=== PATIENT | female | born 1975 | race Caucasian/White ===

== ENCOUNTER → 2017-02-13 | Outpatient (CLI) | payer BC, OTHER ==
--- NOTE | 2017-02-13 18:51 | Diagnostic Imaging Report ---
EXAM: Ultrasound of the neck. INDICATION: Fullness in the region of the right submandibular area. FINDINGS: The area of fullness is seen adjacent to the left submandibular gland with corresponding 0.9 x 0.6 x 0.6 cm lymph node with thin cortex and preserved fatty hilum, likely physiologic. No suspicious lesion or fluid collection identified. IMPRESSION: Minimally prominent left submandibular lymph node in the area of fullness is seen. Dictated by: Dictated on workstation # [id number]
== END ==
LOC: RAD 14:36
PROVIDERS: ATTEND Nurse Practitioner Family
DX: R59.0 Localized enlarged lymph nodes (principal)
CPT/HCPCS: 76536

== ENCOUNTER 2017-03-13 14:54 | Outpatient (RCR) | payer BC, OTHER ==
[2017-02-27 13:42] LABS: BASOPHILS % (AUTO) 0 % (0-10); EOSINOPHILS # (AUTO) 0.1 10^3/uL (0.0-0.3); EOSINOPHILS % (AUTO) 1 % (0-10); LYMPHOCYTES # (AUTO) 1.9 X 10^3 (1.0-4.0); LYMPHOCYTES % (AUTO) 22 % (12-44); MEAN CORPUSCULAR HEMOGLOBIN 30 PG (25-34); MEAN CORPUSCULAR HGB CONC 33 G/DL (32-36); MEAN CORPUSCULAR VOLUME 90 FL (80-99); MONOCYTES # (AUTO) 0.5 X 10^3 (0.0-1.0); MONOCYTES % (AUTO) 6 % (0-12); NEUTROPHILS # (AUTO) 5.9 X 10^3 (1.8-7.8); NEUTROPHILS % (AUTO) 70 % (42-75); PLATELET COUNT 604 10^3/uL (130-400); RED BLOOD COUNT 4.04 10^6/uL (4.35-5.85); RED CELL DISTRIBUTION WIDTH 13.2 % (10.0-14.5); WHITE BLOOD COUNT 8.5 10^3/uL (4.3-11.0)
[2017-02-27 14:06] LABS: ALANINE AMINOTRANSFERASE 16 U/L (0-55); ALBUMIN 3.9 GM/DL (3.2-4.5); ANION GAP 4 MMOL/L (5-14); ASPARTATE AMINO TRANSFERASE 15 U/L (5-34); BILIRUBIN,TOTAL 0.4 MG/DL (0.1-1.0); BLOOD UREA NITROGEN 8 MG/DL (7-18); BUN/CREATININE RATIO 11; CALCIUM 8.8 MG/DL (8.5-10.1); CARBON DIOXIDE 29 MMOL/L (21-32); CHLORIDE 107 MMOL/L (98-107); CREATININE SERUM 0.72 MG/DL (0.60-1.30); GFR ESTIMATED > 60; GLUCOSE 89 MG/DL (70-105); POTASSIUM 4.2 MMOL/L (3.6-5.0); SODIUM 140 MMOL/L (135-145); TOTAL PROTEIN 6.2 GM/DL (6.4-8.2)
[2017-02-27 16:48] LABS: %SAT TOTAL IRON BINDING CAPIC 53 % (15-50); TIBC 339 ug/dL (280-380)
[2017-02-28 07:17] LABS: UIBC 159 ug/dL
[2017-03-03 15:13] LABS: JAK2 MUTATION Not Detected
[2017-03-13 15:25] LABS: BASOPHILS % (AUTO) 0 % (0-10); EOSINOPHILS # (AUTO) 0.2 10^3/uL (0.0-0.3); EOSINOPHILS % (AUTO) 2 % (0-10); LYMPHOCYTES # (AUTO) 2.3 X 10^3 (1.0-4.0); LYMPHOCYTES % (AUTO) 24 % (12-44); MEAN CORPUSCULAR HEMOGLOBIN 29 PG (25-34); MEAN CORPUSCULAR HGB CONC 32 G/DL (32-36); MEAN CORPUSCULAR VOLUME 91 FL (80-99); MEAN PLATELET VOLUME 8.3 FL (7.4-10.4); MONOCYTES # (AUTO) 0.7 X 10^3 (0.0-1.0); MONOCYTES % (AUTO) 7 % (0-12); NEUTROPHILS # (AUTO) 6.3 X 10^3 (1.8-7.8); NEUTROPHILS % (AUTO) 66 % (42-75); PLATELET COUNT 642 10^3/uL (130-400); RED CELL DISTRIBUTION WIDTH 13.6 % (10.0-14.5); WHITE BLOOD COUNT 9.5 10^3/uL (4.3-11.0)
== END 2017-05-04 11:23 | disposition home or self-care (01) ==
LOC: ONC 14:54
PROVIDERS: ATTEND Internal Medicine Hematology & Oncology
DX: D47.3 Essential (hemorrhagic) thrombocythemia (principal); D50.0 Iron deficiency anemia secondary to blood loss (chronic); N92.0 Excessive and frequent menstruation with regular cycle
CPT/HCPCS: 36415; 80053; 81270; 82728; 83540; 85025; 99213; 99214

== ENCOUNTER → 2017-08-14 | Outpatient (CLI) | payer BC ==
--- NOTE | 2017-08-14 20:48 | Diagnostic Imaging Report ---
PROCEDURE: US PELVIC (NON OB) TECHNIQUE: Multiple real-time grayscale images were obtained over the pelvis in various projections transabdominally. IMPRESSION: Vaginal bleeding. FINDINGS: Transabdominally the uterus measures 8.8 x 6.5 cm and demonstrates no focal or myometrial abnormality. The endometrium measures up to 7.5 mm in thickness. There is no fluid within the endometrial canal. Transabdominal appearance of both ovaries is normal. There is no evidence of torsion. Both ovaries demonstrate Doppler flow. Trace degree of free fluid is evident within the cul-de-sac. IMPRESSION: 1. Trace degree of free fluid demonstrated within the cul-de-sac. Endometrial thickness measured 7.5 mm. There is no myometrial abnormality. The ovaries appeared normal. Dictated by: Dictated on workstation # [id number]
== END ==
LOC: RAD 15:16
PROVIDERS: ATTEND Obstetrics & Gynecology
DX: N93.9 Abnormal uterine and vaginal bleeding, unspecified (principal); N94.6 Dysmenorrhea, unspecified
CPT/HCPCS: 76856

== ENCOUNTER → 2017-12-25 | Outpatient (CLI) | payer BC ==
--- NOTE | 2017-12-25 13:02 | Diagnostic Imaging Report ---
INDICATION: Abnormal screening study demonstrating circumscribed lesions in the upper and upper outer left breast, presumably cysts. This study is performed for further evaluation. COMPARISON: Screening mammogram from 11/29/2017. FINDINGS: Sonographic interrogation of the 12 to 3 o'clock location was performed. There is a cluster of cysts at the 2 o'clock location 1 cm from the nipple measuring 1.4 x 1.2 x 1.5 cm in aggregate. There is a cyst at the 2 o'clock location 4 cm from the nipple measuring 1.5 x 0.8 x 1.8 cm. This likely accounts for the mammographic densities. No solid lesions are seen. IMPRESSION: Multiple left breast cysts, likely accounting for the mammographic densities. The patient may return to routine annual screening mammography. ACR BI-RADS Category 1: Negative. Dictated by: Dictated on workstation # [id number]
== END ==
LOC: RAD 11:33
PROVIDERS: ATTEND Obstetrics & Gynecology
DX: N60.02 Solitary cyst of left breast (principal)
CPT/HCPCS: 76642

== ENCOUNTER → 2018-08-23 | Outpatient (CLI) | payer BC ==
--- NOTE | 2018-08-23 08:21 | Diagnostic Imaging Report ---
PROCEDURE: US Gallbladder. TECHNIQUE: Multiple real-time grayscale images were obtained over the right upper quadrant in various projections. INDICATION: Right upper quadrant pain. FINDINGS: Liver is upper limits of normal in size at 17.5 cm. No discrete liver mass is identified. The portal vein is patent and shows normal direction of flow. Gallbladder is without stones or sludge. No wall thickening or biliary ductal dilatation is seen. The visualized pancreatic head is unremarkable. The tail is obscured by bowel gas. Kidney is unremarkable. There is no ascites. IMPRESSION: Unremarkable gallbladder ultrasound. Dictated by: Dictated on workstation # [id number]
== END ==
LOC: RAD 07:10
PROVIDERS: ATTEND Physician Assistant
DX: R10.11 Right upper quadrant pain (principal); R63.0 Anorexia
CPT/HCPCS: 76705

== ENCOUNTER 2018-09-10 10:56 | Outpatient (RCR) | payer BC ==
[2018-09-10 11:09] LABS: BASOPHILS # (AUTO) 0.1 10^3/uL (0.0-0.1); BASOPHILS % (AUTO) 1 % (0-10); EOSINOPHILS # (AUTO) 0.2 10^3/uL (0.0-0.3); EOSINOPHILS % (AUTO) 4 % (0-10); HEMATOCRIT 42 % (35-52); HEMOGLOBIN 13.7 G/DL (11.5-16.0); LYMPHOCYTES # (AUTO) 1.3 X 10^3 (1.0-4.0); LYMPHOCYTES % (AUTO) 21 % (12-44); MEAN CORPUSCULAR HEMOGLOBIN 30 PG (25-34); MEAN CORPUSCULAR HGB CONC 33 G/DL (32-36); MEAN CORPUSCULAR VOLUME 94 FL (80-99); MEAN PLATELET VOLUME 8.8 FL (7.4-10.4); MONOCYTES # (AUTO) 0.5 X 10^3 (0.0-1.0); MONOCYTES % (AUTO) 8 % (0-12); NEUTROPHILS # (AUTO) 4.3 X 10^3 (1.8-7.8); NEUTROPHILS % (AUTO) 67 % (42-75); PLATELET COUNT 584 10^3/uL (130-400); RED CELL DISTRIBUTION WIDTH 13.3 % (10.0-14.5); WHITE BLOOD COUNT 6.4 10^3/uL (4.3-11.0)
[2018-09-10 11:29] LABS: ALANINE AMINOTRANSFERASE 41 U/L (0-55); ALKALINE PHOSPHATASE 55 U/L (40-136); BILIRUBIN,TOTAL 0.3 MG/DL (0.1-1.0); BUN/CREATININE RATIO 17; CALCIUM 8.9 MG/DL (8.5-10.1); CARBON DIOXIDE 23 MMOL/L (21-32); CHLORIDE 108 MMOL/L (98-107); CREATININE SERUM 0.77 MG/DL (0.60-1.30); GFR ESTIMATED > 60; GLUCOSE 77 MG/DL (70-105); SODIUM 141 MMOL/L (135-145); TOTAL PROTEIN 6.1 GM/DL (6.4-8.2)
[2018-10-09] MEDS ORDERED: ESCI20TA PO (13:01)
[2018-10-09] MEDS ORDERED: PANT40TA2 PO (13:01)
[2018-11-06] MEDS ORDERED: SUCR1TAB36 PO (13:25)
== END 2018-12-09 | disposition home or self-care (01) ==
LOC: ONC 10:56
PROVIDERS: ATTEND Internal Medicine Hematology & Oncology
DX: D47.3 Essential (hemorrhagic) thrombocythemia (principal); D50.0 Iron deficiency anemia secondary to blood loss (chronic); N92.0 Excessive and frequent menstruation with regular cycle
CPT/HCPCS: 36415; 80053; 82728; 85025; 99213

== ENCOUNTER 2018-10-09 05:42 | Outpatient (CLI) | payer BC ==
[~2018-10-09] VITALS: Ht 170.2 cm; Wt 70.8 kg
[2018-10-09] MEDS ORDERED: PANT40TA2 PO (13:01)
[2018-10-09] MEDS ORDERED: ESCI20TA PO (13:01)
== END 2018-10-09 13:06 | disposition home or self-care (01) ==
LOC: PREOP 05:42
PROVIDERS: ATTEND Surgery
DX: Z01.818 Encounter for other preprocedural examination (principal)

== ENCOUNTER 2018-11-06 10:31 | Day surgery (SDC) | payer BC ==
[~2018-11-06] VITALS: Ht 170.2 cm; Wt 70.8 kg
[~2018-11-06 10:31] MED LIST: ESCI20TA PO; PANT40TA2 PO
--- OUTSIDE RECORDS SUMMARY | 2018-11-06 10:34 | XMS REPORT ---
Author Author Migration, Doctor Organization [facility] Address Unknown Phone Unavailable Care Team Providers Care Naval Designer Name Role Phone Migration, Doctor Unavailable Unavailable PROBLEMS Type Condition ICD9-CM Code [id number] Code Onset Dates Condition Status SNOMED Code Problem Abnormal screening mammogram R92.8 Active 402620133 Problem Thrombocytosis D47.3 Active 2800174 ALLERGIES No Information ENCOUNTERS Encounter Location Date Diagnosis [place] [address] [address] May, Upper respiratory tract infection, unspecified type J06.9 and Thrombocytosis D47.3 [place] [address] [place] [id number] [place] [address] Mar, Abnormal screening mammogram R92.8 [place] [address] [place] [id number] [place] [address] Mar, [place] [address] [place] [id number] [place] [address] Feb, Routine gynecological examination Z01.419 ; Encounter for Papanicolaou smear for cervical cancer screening Z12.4 and Screening breast examination Z12.39 [place] [address] [place] [id number] [place] [address] Jan, Bleeding from left ear H92.22 [place] [address] [place] [id number] [place] [address] December, Anemia, unspecified type D64.9 [place] [address] [place] [id number] [place] [address]- [address] 14 Nov, 2014 [place] [address] [place] [id number] [place] [address] Nov, [place] [address] [place] [id number] [place] [address] Sep, [facility] [address] [id number] [place] [address] Sep, [facility] [place] [facility] [address] [id number] [place] [address] Aug, [facility] [address] [id number] [place] [address] Aug, [facility] [address] [id number] [place] [address] Aug, [facility] [address] [id number] [place] [address] Aug, [facility] [address] [id number] [place] [address] Jul, [facility] [address] [facility] [id number] [place] [address] Jul, [facility] [place] [facility] [address] [id number] [place] [address] Jul, [facility] [address] [id number] [place] [address] Jul, [facility] [place] [facility] [address] [facility] [id number] [place] [address] Jul, [facility] [address] [id number] [place] [address] Jul, [facility] [place] [facility] [address] [id number] [place] [address] 29 Oct, 2012 [facility] [place] [facility] [address] [id number] [place] [address] 28 Oct, 2012 [facility] [place] [facility] [address] [id number] [place] [address] 26 Oct, 2012 [facility] [place] [facility] [address] [facility] [id number] [place] [address] 09 Jul, 2010 [facility] [place] [facility] [address] [facility] [id number] [place] [id number] 2010 IMMUNIZATIONS No Known Immunizations SOCIAL HISTORY Never Assessed REASON FOR VISIT EMR-[facility]AN OF CARE VITAL SIGNS MEDICATIONS Medication Instructions Dosage Frequency Start Date End Date Duration Status Vitamin B-12 250 mcg 2 Tablet by Oral route 1 time per day Jul, Active RESULTS No Results PROCEDURES No Known procedures INSTRUCTIONS MEDICATIONS ADMINISTERED No Known Medications MEDICAL (GENERAL) HISTORY Type Description Date Surgical History Tubal ligation 1996
[2018-11-06 10:35] VITALS: BP 107/78
--- OUTSIDE RECORDS SUMMARY | 2018-11-06 10:35 | XMS REPORT | Continuity of Care Document ---
Author Author [facility] Address Unknown Phone Unavailable Allergies Active Description Code Type Severity Reaction Onset Reported/Identified Relationship to Patient Clinical Status Yes No Known Drug Allergies [id number] Drug Allergy Unknown N/A 10/09/2018 Medications There is no data. Problems Date Dx Coded Attending Type Code Diagnosis Diagnosed By 01/11/2010 729.5 PAIN IN LIMB 01/11/2010 MEAGAN ANDRE MD 729.5 PAIN IN LIMB 01/11/2010 MEAGAN ANDRE MD N 729.5 PAIN IN LIMB 01/11/2010 MEAGAN ANDRE MD 729.5 PAIN IN LIMB 07/15/2010 216.4 BENIGN NEOPLASM OF SCALP AND SKIN OF NECK 07/15/2010 MEAGAN ANDRE MD N 216.4 BENIGN NEOPLASM OF SCALP AND SKIN OF NECK 07/15/2010 MEAGAN ANDRE MD N 216.4 BENIGN NEOPLASM OF SCALP AND SKIN OF NECK 07/15/2010 MEAGAN ANDRE MD N 216.4 BENIGN NEOPLASM OF SCALP AND SKIN OF NECK 11/29/2010 238.1 NEOPLASM OF UNCERTAIN BEHAVIOR OF CONNECTIVE AND OTHER SOFT TISSUE 11/29/2010 MEAGAN ANDRE MD N 238.1 NEOPLASM OF UNCERTAIN BEHAVIOR OF CONNECTIVE AND OTHER SOFT TISSUE 11/29/2010 MEAGAN ANDRE MD N 238.1 NEOPLASM OF UNCERTAIN BEHAVIOR OF CONNECTIVE AND OTHER SOFT TISSUE 11/29/2010 MEAGAN ANDRE MD N 238.1 NEOPLASM OF UNCERTAIN BEHAVIOR OF CONNECTIVE AND OTHER SOFT TISSUE 12/09/2010 216.9 BENIGN NEOPLASM OF SKIN SITE UNSPECIFIED 12/09/2010 785.6 ENLARGEMENT OF LYMPH NODES 12/09/2010 V58.32 ENCOUNTER FOR REMOVAL OF SUTURES 12/09/2010 MEAGAN ANDRE MD N 216.9 BENIGN NEOPLASM OF SKIN SITE UNSPECIFIED 12/09/2010 MEAGAN ANDRE MD N 785.6 ENLARGEMENT OF LYMPH NODES 12/09/2010 MEAGAN ANDRE MD N V58.32 ENCOUNTER FOR REMOVAL OF SUTURES 12/09/2010 MEAGAN ANDRE MD N 216.9 BENIGN NEOPLASM OF SKIN SITE UNSPECIFIED 12/09/2010 MEAGAN ANDRE MD N 785.6 ENLARGEMENT OF LYMPH NODES 12/09/2010 MEAGAN ANDRE MD N V58.32 ENCOUNTER FOR REMOVAL OF SUTURES 12/09/2010 MEAGAN ANDRE MD N 216.9 BENIGN NEOPLASM OF SKIN SITE UNSPECIFIED 12/09/2010 MEAGAN ANDRE MD N 785.6 ENLARGEMENT OF LYMPH NODES 12/09/2010 MEAGAN ANDRE MD V58.32 ENCOUNTER FOR REMOVAL OF SUTURES 10/30/2012 564.00 CONSTIPATION 10/30/2012 789.09 ABDOMINAL PAIN OTHER SPECIFIED SITE 10/30/2012 MEAGAN ANDRE MD N 564.00 CONSTIPATION 10/30/2012 MEAGAN ANDRE MD N 789.09 ABDOMINAL PAIN OTHER SPECIFIED SITE 10/30/2012 MEAGAN ANDRE MD N 564.00 CONSTIPATION 10/30/2012 MEAGAN ANDRE MD N 789.09 ABDOMINAL PAIN OTHER SPECIFIED SITE 10/30/2012 MEAGAN ANDRE MD N 564.00 CONSTIPATION 10/30/2012 MEAGAN ANDRE MD N 789.09 ABDOMINAL PAIN OTHER SPECIFIED SITE 07/17/2013 MEAGAN ANDRE MD N V70.0 EXAM - ROUTINE H&P 07/17/2013 MEAGAN ANDRE MD V70.0 EXAM - ROUTINE H&P 07/17/2013 MEAGAN ANDRE MD V70.0 EXAM - ROUTINE H&P 03/14/2016 Ot 621.2 HYPERTROPHY OF UTERUS 03/14/2016 Ot 626.8 MENSTRUAL DISORDER NEC 03/16/2016 KADE BEST Ot Z12.31 ENCNTR SCREEN MAMMOGRAM FOR MALIGNANT NE 03/25/2016 KADE BESTP Ot Z12.31 ENCNTR SCREEN MAMMOGRAM FOR MALIGNANT NE 03/29/2016 SUAREZ DOESME Ot R92.8 OTH ABN AND INCONCLUSIVE FINDINGS ON DX 04/03/2016 SUAREZ DOESME Ot R92.8 OTH ABN AND INCONCLUSIVE FINDINGS ON DX 04/05/2016 Ot 621.2 HYPERTROPHY OF UTERUS 04/05/2016 Ot 626.8 MENSTRUAL DISORDER NEC 04/05/2016 KADE BEST [employer] Ot Z12.31 ENCNTR SCREEN MAMMOGRAM FOR MALIGNANT NE 04/05/2016 SUAREZ DO, ESME K Ot R92.8 OTH ABN AND INCONCLUSIVE FINDINGS ON DX 02/08/2017 KADE BEST [employer] Ot Z12.31 ENCNTR SCREEN MAMMOGRAM FOR MALIGNANT NE 02/08/2017 SUAREZ DO, ESME K Ot R92.8 OTH ABN AND INCONCLUSIVE FINDINGS ON DX 02/14/2017 DEMARCUS WEAVER EDGER TECHNICIAN Ot R59.0 LOCALIZED ENLARGED LYMPH NODES 02/19/2017 DEMARCUS WEAVER EDGER TECHNICIAN Ot R59.0 LOCALIZED ENLARGED LYMPH NODES 02/22/2017 DEMARCUS WEAVER EDGER TECHNICIAN Ot R59.0 LOCALIZED ENLARGED LYMPH NODES 02/27/2017 DEMARCUS WEAVER EDGER TECHNICIAN Ot R59.0 LOCALIZED ENLARGED LYMPH NODES 02/28/2017 ALLIE MARIEE MD Ot D47.3 ESSENTIAL (HEMORRHAGIC) THROMBOCYTHEMIA 02/28/2017 ALLIE MARIEE MD Ot D50.0 IRON DEFICIENCY ANEMIA SECONDARY TO BLOO 02/28/2017 ALLIE MARIEE MD Ot N92.0 EXCESSIVE AND FREQUENT MENSTRUATION WITH 03/01/2017 DEMARCUS WEAVER EDGER TECHNICIAN Ot R59.0 LOCALIZED ENLARGED LYMPH NODES 03/01/2017 DEMARCUS WEAVER EDGER TECHNICIAN Ot R59.0 LOCALIZED ENLARGED LYMPH NODES 03/01/2017 DEMARCUS WEAVER EDGER TECHNICIAN Ot R59.0 LOCALIZED ENLARGED LYMPH NODES 03/29/2017 ALLIE MARIEE MD Ot D47.3 ESSENTIAL (HEMORRHAGIC) THROMBOCYTHEMIA 03/29/2017 ALLIE MARIEE MD Ot D50.0 IRON DEFICIENCY ANEMIA SECONDARY TO BLOO 03/29/2017 ALLIE MARIEE MD Ot N92.0 EXCESSIVE AND FREQUENT MENSTRUATION WITH 04/19/2017 ALLIE MARIEE MD Ot D47.3 ESSENTIAL (HEMORRHAGIC) THROMBOCYTHEMIA 04/19/2017 ALLIE MARIEE MD Ot D50.0 IRON DEFICIENCY ANEMIA SECONDARY TO BLOO 04/19/2017 ALLIE MARIEE MD Ot N92.0 EXCESSIVE AND FREQUENT MENSTRUATION WITH 05/04/2017 ALLIE MARIEE MD Ot D47.3 ESSENTIAL (HEMORRHAGIC) THROMBOCYTHEMIA 05/04/2017 ALLIE MARIEE MD Ot D50.0 IRON DEFICIENCY ANEMIA SECONDARY TO BLOO 05/04/2017 KODI PRINGLE, ALLIE Ot N92.0 EXCESSIVE AND FREQUENT MENSTRUATION WITH 05/09/2017 KADE BESTP Ot Z12.31 ENCNTR SCREEN MAMMOGRAM FOR MALIGNANT NE 05/09/2017 ESME SUAREZ DO Ot R92.8 OTH ABN AND INCONCLUSIVE FINDINGS ON DX 05/09/2017 DEMARCUS WEAVER EDGER TECHNICIAN Ot R59.0 LOCALIZED ENLARGED LYMPH NODES 06/08/2017 DEMARCUS WEAVER EDGER TECHNICIAN Ot R59.0 LOCALIZED ENLARGED LYMPH NODES 08/14/2017 DEMARCUS WEAVER EDGER TECHNICIAN Ot R59.0 LOCALIZED ENLARGED LYMPH NODES 11/29/2017 DEMARCUS WEAVER EDGER TECHNICIAN Ot R59.0 LOCALIZED ENLARGED LYMPH NODES 11/29/2017 FENECH DO, DONNELL S Ot N93.9 ABNORMAL UTERINE AND VAGINAL BLEEDING, U 11/29/2017 FENECH DO, DONNELL S Ot N94.6 DYSMENORRHEA, UNSPECIFIED 11/30/2017 FENECH DO, DONNELL S Ot Z12.31 ENCNTR SCREEN MAMMOGRAM FOR MALIGNANT NE 12/09/2017 FENECH DO, DONNELL S Ot Z12.31 ENCNTR SCREEN MAMMOGRAM FOR MALIGNANT NE 12/13/2017 FENECH DO, DONNELL S Ot Z12.31 ENCNTR SCREEN MAMMOGRAM FOR MALIGNANT NE 12/18/2017 DEMARCUS WEAVER EDGER TECHNICIAN Ot R59.0 LOCALIZED ENLARGED LYMPH NODES 12/18/2017 FENECH DO, DONNELL S Ot N93.9 ABNORMAL UTERINE AND VAGINAL BLEEDING, U 12/18/2017 FENECH DO, DONNELL S Ot N94.6 DYSMENORRHEA, UNSPECIFIED 12/18/2017 FENECH DO, DONNELL S Ot Z12.31 ENCNTR SCREEN MAMMOGRAM FOR MALIGNANT NE 12/26/2017 FENECH DO, DONNELL S Ot N60.02 SOLITARY CYST OF LEFT BREAST 01/11/2018 FENECH DO, DONNELL S Ot N60.02 SOLITARY CYST OF LEFT BREAST 04/04/2018 MADELIN CARTAGENA MD Ot D47.3 ESSENTIAL (HEMORRHAGIC) THROMBOCYTHEMIA 04/04/2018 MADELIN CARTAGENA MD Ot D64.9 ANEMIA, UNSPECIFIED 04/04/2018 MADELIN CARTAGENA MD Ot D72.829 ELEVATED WHITE BLOOD CELL COUNT, UNSPECI 04/18/2018 MADELIN CARTAGENA MD, Ot D47.3 ESSENTIAL (HEMORRHAGIC) THROMBOCYTHEMIA 04/18/2018 MADELIN CARTAGENA MD, Ot D64.9 ANEMIA, UNSPECIFIED 04/18/2018 MADELIN CARTAGENA MD, Ot D72.829 ELEVATED WHITE BLOOD CELL COUNT, UNSPECI 05/08/2018 DEMARCUS WEAVER EDGER TECHNICIAN Ot R59.0 LOCALIZED ENLARGED LYMPH NODES 05/08/2018 FENECH DO, DONNELL S Ot N93.9 ABNORMAL UTERINE AND VAGINAL BLEEDING, U 05/08/2018 FENECH DO, DONNELL S Ot N94.6 DYSMENORRHEA, UNSPECIFIED 05/08/2018 FENECH DO, DONNELL S Ot Z12.31 ENCNTR SCREEN MAMMOGRAM FOR MALIGNANT NE 05/08/2018 FENECH DO, DONNELL S Ot N60.02 SOLITARY CYST OF LEFT BREAST 05/08/2018 MADELIN CARTAGENA MD, Ot D47.3 ESSENTIAL (HEMORRHAGIC) THROMBOCYTHEMIA 05/08/2018 MADELIN CARTAGENA MD, Ot D64.9 ANEMIA, UNSPECIFIED 05/08/2018 MADELIN CARTAGENA MD, Ot D72.829 ELEVATED WHITE BLOOD CELL COUNT, UNSPECI 05/14/2018 DEMARCUS WEAVER EDGER TECHNICIAN Ot R59.0 LOCALIZED ENLARGED LYMPH NODES 05/14/2018 FENECH DO, DONNELL S Ot N93.9 ABNORMAL UTERINE AND VAGINAL BLEEDING, U 05/14/2018 FENECH DO, DONNELL S Ot N94.6 DYSMENORRHEA, UNSPECIFIED 05/14/2018 FENECH DO, DONNELL S Ot Z12.31 ENCNTR SCREEN MAMMOGRAM FOR MALIGNANT NE 05/14/2018 FENECH DO, DONNELL S Ot N60.02 SOLITARY CYST OF LEFT BREAST 05/14/2018 MADELIN CARTAGENA MD, Ot D47.3 ESSENTIAL (HEMORRHAGIC) THROMBOCYTHEMIA 05/14/2018 MADELIN CARTAGENA MD, Ot D64.9 ANEMIA, UNSPECIFIED 05/14/2018 MADELIN CARTAGENA MD, Ot D72.829 ELEVATED WHITE BLOOD CELL COUNT, UNSPECI 07/03/2018 IVAN BURK Ot D47.3 ESSENTIAL (HEMORRHAGIC) THROMBOCYTHEMIA 07/03/2018 IVAN BURK Ot D50.0 IRON DEFICIENCY ANEMIA SECONDARY TO BLOO 07/03/2018 IVAN BURK Ot N92.0 EXCESSIVE AND FREQUENT MENSTRUATION WITH 08/12/2018 IVAN BURK Ot D47.3 ESSENTIAL (HEMORRHAGIC) THROMBOCYTHEMIA 08/12/2018 IVAN BURK Ot D50.0 IRON DEFICIENCY ANEMIA SECONDARY TO BLOO 08/12/2018 IVAN BURK Ot N92.0 EXCESSIVE AND FREQUENT MENSTRUATION WITH 08/13/2018 IVAN BURK Ot D47.3 ESSENTIAL (HEMORRHAGIC) THROMBOCYTHEMIA 08/13/2018 IVAN BURK Ot D50.0 IRON DEFICIENCY ANEMIA SECONDARY TO BLOO 08/13/2018 IVAN BURK Ot N92.0 EXCESSIVE AND FREQUENT MENSTRUATION WITH 08/17/2018 DEMARCUS WEAVER APRN Ot R59.0 LOCALIZED ENLARGED LYMPH NODES 08/17/2018 BETINA DODONNELL S Ot N93.9 ABNORMAL UTERINE AND VAGINAL BLEEDING, U 08/17/2018 DONNELL MOFFETT DO S Ot N94.6 DYSMENORRHEA, UNSPECIFIED 08/17/2018 DONNLEL MOFFETT DO S Ot Z12.31 ENCNTR SCREEN MAMMOGRAM FOR MALIGNANT NE 08/17/2018 DONNELL MOFFETT DO Ot N60.02 SOLITARY CYST OF LEFT BREAST 08/17/2018 OSIEL PRINGLE, MADELIN Spears Ot D47.3 ESSENTIAL (HEMORRHAGIC) THROMBOCYTHEMIA 08/17/2018 OSIEL PRINGLE, MADELIN Spears Ot D64.9 ANEMIA, UNSPECIFIED 08/17/2018 OSIEL PRINGLE, MADELIN Spears Ot D72.829 ELEVATED WHITE BLOOD CELL COUNT, UNSPECI 08/17/2018 IVAN BURK Ot D47.3 ESSENTIAL (HEMORRHAGIC) THROMBOCYTHEMIA 08/17/2018 IVAN BURK Ot D50.0 IRON DEFICIENCY ANEMIA SECONDARY TO BLOO 08/17/2018 IVAN BURK Ot N92.0 EXCESSIVE AND FREQUENT MENSTRUATION WITH 08/24/2018 BAILEE NAVA Ot R10.11 RIGHT UPPER QUADRANT PAIN 08/24/2018 BAILEE NAVA Ot R63.0 ANOREXIA 09/05/2018 BAILEE NAVA Ot R10.11 RIGHT UPPER QUADRANT PAIN 09/05/2018 BAILEE NAVA Ot R63.0 ANOREXIA 09/11/2018 IVAN BURK Ot D47.3 ESSENTIAL (HEMORRHAGIC) THROMBOCYTHEMIA 09/11/2018 IVAN BURK Ot D50.0 IRON DEFICIENCY ANEMIA SECONDARY TO BLOO 09/11/2018 BHARGAVI, BOBAN N Ot N92.0 EXCESSIVE AND FREQUENT MENSTRUATION WITH 10/09/2018 MARY SALAZAR DO Ot Z01.818 ENCOUNTER FOR OTHER PREPROCEDURAL EXAMIN 10/22/2018 IVAN BURK Ot D47.3 ESSENTIAL (HEMORRHAGIC) THROMBOCYTHEMIA 10/22/2018 IVAN BURK Ot D50.0 IRON DEFICIENCY ANEMIA SECONDARY TO BLOO 10/22/2018 IVAN BURK Ot N92.0 EXCESSIVE AND FREQUENT MENSTRUATION WITH Procedures Code Description [place] [address] UA W/ CULTURE IF INDICATED 10/30/2012 27956 CULTURE URINE 11/01/2012 24940 ROUTINE VENIPUNCTURE 07/18/2013 76681 CBC 07/18/2013 [id number] GFR CALC (RESULT ONLY) 07/18/2013 06408 CMP 07/18/2013 71631 LIPID PANEL 07/18/2013 72107 MAGNESIUM 07/18/2013 95934 TSH 07/18/2013 86898 ROUTINE VENIPUNCTURE 08/29/2013 49074 CBC 08/29/2013 Results Test Result Range Pathologist review of blood test by comment - 04/02/18 10:31 Blood leukocytes automated count (number/volume) 7.9 10*3/uL 4.3-11.0 Blood erythrocytes automated count (number/volume) 4.01 10*6/uL 4.35-5.85 Venous blood hemoglobin measurement (mass/volume) 12.1 g/dL 11.5-16.0 Blood hematocrit (volume fraction) 36 % 35-52 Automated erythrocyte mean corpuscular volume 91 [foz_us] 80-99 Automated erythrocyte mean corpuscular hemoglobin (mass per erythrocyte) 30 pg 25-34 Automated erythrocyte mean corpuscular hemoglobin concentration measurement ( mass/volume) 33 g/dL 32-36 Automated erythrocyte distribution width ratio 13.3 % 10.0-14.5 Automated blood platelet count (count/volume) 746 10*3/uL 130-400 Automated blood platelet mean volume measurement 8.4 [foz_us] 7.4-10.4 Automated blood neutrophils/100 leukocytes 65 % 42-75 Automated blood lymphocytes/100 leukocytes 24 % 12-44 Blood monocytes/100 leukocytes 3 % NRG Automated blood eosinophils/100 leukocytes 3 % 0-10 Automated blood basophils/100 leukocytes 1 % 0-10 Blood neutrophils automated count (number/volume) 5.1 10*3 1.8-7.8 Blood lymphocytes automated count (number/volume) 1.9 10*3 1.0-4.0 Blood monocytes automated count (number/volume) 0.6 10*3 0.0-1.0 Automated eosinophil count 0.3 10*3/uL 0.0-0.3 Automated blood basophil count (count/volume) 0.0 10*3/uL 0.0-0.1 Manual blood segmented neutrophils/100 leukocytes 60 % NRG Blood band neutrophils/100 leukocytes 0 % NRG Manual blood lymphocytes/100 leukocytes 31 % NRG Manual eosinophils/100 leukocytes in nose 6 % NRG Manual blood basophils/100 leukocytes 0 % NRG Blood erythrocyte morphology finding identification NORMAL NRG Blood reticulocytes count (number/volume) 52 10*9/L 24- 90 Blood reticulocytes/100 erythrocytes 1.29 % 0.50-2.40 Serum or plasma ferritin measurement (mass/volume) - 04/02/18 10:31 Serum or plasma ferritin measurement (mass/volume) 65.4 % 20.0-177.0 Encounters ACCT No. Visit Date/Time Discharge Status Pt. Type Provider Facility Loc./Unit Complaint [id number] 08/29/2013 09:09:00 08/29/2013 23:59:59 CLS Outpatient MEAGAN ANDRE MD [id number] 07/18/2013 08:12:00 07/18/2013 23:59:59 CLS Outpatient MEAGAN ANDRE MD [id number] 07/17/2013 11:15:00 07/17/2013 23:59:59 CLS Outpatient MEAGAN ANDRE MD [id number] 10/30/2012 15:58:00 10/30/2012 23:59:59 CLS Outpatient [id number] 02/01/2017 10:21:43 02/01/2017 23:59:59 CLS Outpatient [id number] 10/16/2018 11:00:00 10/16/2018 23:59:59 CLS Preadmit MARY SALAZAR DO [facility] ENDO EPIGASTRIC ABD PAIN [id number] 10/09/2018 05:42:00 10/09/2018 13:06:00 DIS Outpatient MARY SALAZAR DO [facility] PREOP EGD [id number] 09/10/2018 10:56:00 09/10/2018 23:59:59 CLS Outpatient IVAN BURK [facility] ONC [id number] 08/30/2018 10:57:00 08/30/2018 23:59:59 CLS Preadmit BAILEE NAVA [facility] CARD RUQ ABD PAIN [id number] 08/23/2018 07:10:00 08/23/2018 23:59:59 CLS Outpatient BAILEE NAVA [facility] RAD RUQ PAIN [id number] 06/13/2018 13:31:00 08/12/2018 00:01:00 DIS Outpatient IVAN BURK [facility] ONC [id number] 04/02/2018 10:18:00 04/02/2018 23:59:59 CLS Outpatient MADELIN CARTAGENA MD [facility] LAB ANEMIA D64.9 [id number] 12/25/2017 11:33:00 12/25/2017 23:59:59 CLS Outpatient FAYDONNELL HORNER DO [facility] RAD R92.8 ABN MAMMO [id number] 11/29/2017 14:57:00 11/29/2017 23:59:59 CLS Outpatient DONNELL MOFFETT DO [facility] RAD SCREENING [id number] 08/14/2017 15:16:00 08/14/2017 23:59:59 CLS Outpatient DONNELL MOFFETT DO [facility] RAD ABN UTERINE BLEEDING [id number] 03/13/2017 14:54:00 05/04/2017 11:23:00 DIS Outpatient ALLIE MARIEE MD [facility] ONC [id number] 02/13/2017 14:36:00 02/13/2017 23:59:59 CLS Outpatient DEMARCUS WEAVER APRN [facility] RAD ENLARGED LYMPH, NECK MASS [id number] 03/28/2016 08:33:00 03/28/2016 23:59:59 CLS Outpatient ESME SUAREZ DO [facility] RAD ABNORMAL SCREENING MAMMOGRAM [id number] 03/14/2016 11:10:00 03/14/2016 23:59:59 CLS Outpatient KADE BEST [employer]UN[employer]IN[employer] [facility] RAD SCREENING [id number] 01/10/2011 14:02:00 Document Registration
--- OUTSIDE RECORDS SUMMARY | 2018-11-06 10:35 | XMS REPORT ---
Author Author KADE BEST Organization [facility] Address [address] [place] [address] Care Team Providers Care Community Service Officer Name Role Phone KADE BEST Unavailable PROBLEMS Type Condition ICD9-CM Code [id number] Code Onset Dates Condition Status SNOMED Code Assessment Routine gynecological examination Z01.419 Feb, Active [id number] Assessment Encounter for Papanicolaou smear for cervical cancer screening Z12.4 Feb, Active 819545153 Assessment Screening breast examination Z12.39 Feb, Active [id number] ALLERGIES Substance Reaction Event Type Date Status N.K.D.A. Unknown Non Drug Allergy Feb, Unknown SOCIAL HISTORY No smoking Hx information available PLAN OF CARE VITAL SIGNS Height 67 in 2016-03-02 Weight 136.9 lbs 2016-03-02 Heart Rate 80 bpm 2016-03-02 Respiratory Rate 18 2016-03-02 BMI 21.44 kg/m2 2016-03-02 Blood pressure systolic 112 mmHg 2016-03-02 Blood pressure diastolic 76 mmHg 2016-03-02 MEDICATIONS Medication Instructions Dosage Frequency Start Date End Date Duration Status Ferrous Sulfate 325 (65 Fe) MG Orally twice a day 1 tablet 12h Active RESULTS Name Result Date Reference Range PAP TEST, HPV IF ASCUS 2016-03-02 DIAGNOSIS: Specimen adequacy: Clinician provided ICD10: Performed by: . . Note: . PDF Report 2016-03-02 PDF Report1 [facility] Mammogram, Bilateral Screening 2016-03-14 PROCEDURES Procedure Date Ordered Related Diagnosis Body Site SPECIMEN HANDLING March 02, 2016 Preventive Care Est Pt. Age 40-64 March 02, 2016 IMMUNIZATIONS No Known Immunizations
--- OUTSIDE RECORDS SUMMARY | 2018-11-06 10:35 | XMS REPORT ---
Author KADE Mcclain Organization [employer] Address Unknown Phone Unavailable Care Team Providers Care Platen Builder Up Name Role Phone KADE BEST CP Unavailable Allergies No Known Allergies Problems Problem Type Condition Code Onset Dates Condition Status Problem Abdominal pain, other specified site 789.09 Active Problem Unspecified constipation 564.00 Active Problem Routine general medical examination at health care facility V70.0 Active Medications No Known Medications Results No Known Results Summary Purpose [employer] Submission
--- OUTSIDE RECORDS SUMMARY | 2018-11-06 10:35 | XMS REPORT ---
Author REYNA Lloyd [facility] [employer] Address Unknown Phone Unavailable Care Team Providers Care Ground Support Equipment Mechanic Name Role Phone REYNA NELSON CP Unavailable Allergies, Adverse Reactions, Alerts Substance Reaction Event Type N.K.D.A. Info Not Available Non Drug Allergy Problems Problem Type Condition Code Onset Dates Condition Status Problem Abnormal screening mammogram R92.8 Active Assessment Upper respiratory tract infection, unspecified type J06.9 Active Problem Thrombocytosis D47.3 Active Assessment Thrombocytosis D47.3 Active Medications Medication Code System Code Instructions Start Date End Date Status Dosage Ferrous Sulfate [facility] [address]-40 325 (65 Fe) MG Orally twice a day 1 tablet Procedures Procedure Coding System Code Date Office Visit, Est Pt., Level 3 CPT-4 19069 May 20, 2016 Vital Signs Date/Time: May 20, 2016 Cardiac Monitoring Heart Rate 74 bpm Weight 138 lbs Height 67 in BMI 21.61 Index Blood Pressure Diastolic 64 mmHg Blood Pressure Systolic 98 mmHg Results No Known Results Summary Purpose [employer] Submission
[2018-11-06] MEDS ORDERED: LACTATED RINGERS 1,000 ML IV ONE ×2 (10:36→13:00)
[2018-11-06] MEDS ORDERED: HURRICAINE EXT TUBE (BENZOCAINE) XX PRN (10:45)
[2018-11-06] MEDS ORDERED: LACTATED RINGERS 1,000 ML IV PRN (10:45)
[2018-11-06] MEDS ORDERED: proPOfol 200 MG/20 ML (DIPRIVAN) VIAL IV ONE (10:58)
[2018-11-06] MEDS ORDERED: MIDAZOLAM 2 MG/2 ML (VERSED) VIAL ONE (10:58)
[2018-11-06] MEDS ORDERED: HURRICAINE EXT TUBE (BENZOCAINE) ONE (11:35)
--- NOTE | 2018-11-06 13:24 | Progress Note-Post Operative ---
Post-Operative Progess Note Surgeon (s)/Certified Pest Control Technician (s) Surgeon MARY SALAZAR DO Certified Pest Control Technician: na Pre-Operative Diagnosis epigastric abdominal pain, gerd Post-Operative Diagnosis gastritis, duodenitis Procedure & Operative Findings Date of Procedure 11/06/18 Procedure Performed/Findings egd c biopsies Anesthesia Type per [facility] Estimated Blood Loss Estimated blood loss (mL): none Specimens/Packing Specimens Removed antrum, ge MARY SALAZAR DO Nov 06, 2018 13:24
[2018-11-06] MEDS ORDERED: SUCR1TAB36 PO (13:25)
--- NOTE | 2018-11-06 13:27 | Discharge Inst-Simple/Standard ---
Discharge Inst-Standard Discharge Medications New, Converted or Re-Newed RX: Transmitted to Pharmacy Patient Instructions/Follow Up Plan of Care/Instructions/FU: 2 weeks Carmen Activity as Tolerated: Yes Discharge Diet: Regular Diet MARY SALAZAR DO Nov 06, 2018 13:27
[2018-11-06 13:40] VITALS: BP 105/59
[2018-11-06 14:10] VITALS: BP 109/58
[2018-11-06 14:20] VITALS: BP 109/58
[2018-11-06 14:25] VITALS: BP 105/59
--- NOTE | 2018-11-06 15:11 | Anesthesia-General Post-Op ---
MAC Patient Condition Mental Status/LOC: Same as Preop Cardiovascular: Satisfactory Nausea/Vomiting: Absent Respiratory: Satisfactory Pain: Controlled Complications: Absent Post Op Complications Complications None Follow Up Care/Instructions Patient Instructions None needed. Anesthesiology Discharge Order Discharge Order Patient is doing well, no complaints, stable vital signs, no apparent adverse anesthesia problems. No complications reported per nursing. JENNIFER ROMANO CRNA Nov 06, 2018 15:11
--- NOTE | 2018-11-06 17:57 | OPERATIVE REPORT ---
DATE OF SERVICE: 11/06/2018 PREOPERATIVE DIAGNOSIS: Epigastric abdominal pain. POSTOPERATIVE DIAGNOSES: Gastritis, duodenitis. PROCEDURE: EGD with biopsies of the antrum and GE junction. SURGEON: Mary Morales DO ANESTHESIA: Per MDA. ESTIMATED BLOOD LOSS: None. COMPLICATIONS: None. INDICATIONS: The patient is a 43-year-old female who is having epigastric abdominal pain, some pressure in the upper esophagus area. She has been on Protonix longstanding. She understands risks and benefits of procedure and wished to proceed with procedure. Consent was signed on the chart. DESCRIPTION OF PROCEDURE: The patient was taken to the endoscopy suite, placed in left lateral recumbent position. Timeout was performed. Scope was inserted into the mouth, down the esophagus, stomach and the duodenum without difficulty. There were no polyps, masses or ulcerations within the duodenum. There are some erythematous changes in the first portion of the duodenum. Scope was slowly retracted back into the stomach, which was further insufflated. Some slight erosions and gastritis appearance. Biopsies were obtained of the antrum. Scope was retroflexed noting no other significant pathology. Scope was then returned to its normal position, slowly withdrawn to the distal esophagus. There are no polyps, masses or ulcerations. Biopsy of the GE junction was obtained. Scope was then slowly retracted back until completely removed. The patient tolerated procedure well without any complications. She was taken to recovery room in stable condition. RECOMMENDATIONS: The patient to be started on Carafate 1 gram four times a day. We will follow up in 2 weeks to see if any improvement. We would also consider workup of the gallbladder if no improvement. Job ID: [id number] DocumentID: [id number] Dictated Date: 11/06/2018 13:29:54 Crown Assembly Machine Operator Date: 11/06/2018 17:56:50 Dictated By: MARY MORALES DO
== END 2018-11-06 14:20 | disposition home or self-care (01) ==
LOC: ENDO 10:31
PROVIDERS: ATTEND Surgery
DX: K29.70 Gastritis, unspecified, without bleeding (principal); K29.80 Duodenitis without bleeding; K21.9 Gastro-esophageal reflux disease without esophagitis; F32.9 Major depressive disorder, single episode, unspecified; F41.9 Anxiety disorder, unspecified; Z87.891 Personal history of nicotine dependence; Z79.899 Other long term (current) drug therapy
CPT/HCPCS: 84703

== ENCOUNTER 2019-02-28 05:48 | Day surgery (SDC) | payer BC ==
[2019-02-28] VITALS (10 sets, daily range): BP systolic 106–132; BP diastolic 59–84
[~2019-02-28] VITALS: Ht 170.2 cm; Wt 70.8 kg
[~2019-02-28 05:48] MED LIST changes: +SUCR1TAB36 PO
[2019-02-28 06:35] LABS: BASOPHILS % (AUTO) 0 % (0-10); EOSINOPHILS # (AUTO) 0.3 10^3/uL (0.0-0.3); EOSINOPHILS % (AUTO) 3 % (0-10); HEMATOCRIT 42 % (35-52); HEMOGLOBIN 13.6 G/DL (11.5-16.0); LYMPHOCYTES # (AUTO) 2.2 X 10^3 (1.0-4.0); LYMPHOCYTES % (AUTO) 23 % (12-44); MEAN CORPUSCULAR HEMOGLOBIN 30 PG (25-34); MEAN CORPUSCULAR HGB CONC 33 G/DL (32-36); MEAN CORPUSCULAR VOLUME 93 FL (80-99); MEAN PLATELET VOLUME 8.8 FL (7.4-10.4); MONOCYTES # (AUTO) 0.7 X 10^3 (0.0-1.0); MONOCYTES % (AUTO) 8 % (0-12); NEUTROPHILS # (AUTO) 6.5 X 10^3 (1.8-7.8); NEUTROPHILS % (AUTO) 67 % (42-75); PLATELET COUNT 604 10^3/uL (130-400); RED CELL DISTRIBUTION WIDTH 13.5 % (10.0-14.5); WHITE BLOOD COUNT 9.7 10^3/uL (4.3-11.0)
[2019-02-28] MEDS ORDERED: LIDOCAINE PF 2% 5 ML (XYLOCAINE) VIAL ONE (06:36)
[2019-02-28] MEDS ORDERED: ROCURONIUM 10 MG/ML 5 ML SYRINGE IV ONE (06:36)
[2019-02-28] MEDS ORDERED: DEXAMETHASONE 10 MG/ML (DECADRON) 1 ML VIAL ONE (06:36)
[2019-02-28] MEDS ORDERED: fentaNYL INJECTION 100 MCG/2 ML AMP ONE (06:36)
[2019-02-28] MEDS ORDERED: MIDAZOLAM 2 MG/2 ML (VERSED) VIAL ONE (06:36)
[2019-02-28] MEDS ORDERED: GLYCOPYRROLATE 0.2 MG/ML (ROBINUL) 2 ML VIAL ONE (06:36)
[2019-02-28] MEDS ORDERED: ONDANSETRON 4 MG/2 ML (SDV) Z0FRAN ONE ×2 (06:36→06:37)
[2019-02-28] MEDS ORDERED: proPOfol 200 MG/20 ML (DIPRIVAN) VIAL IV ONE (06:36)
[2019-02-28] MEDS ORDERED: ceFAZolin INJECTION 1,000 MG ONE (06:37)
[2019-02-28] MEDS ORDERED: metroNIDAZOLE 500MG/100ML IVPB 100 ML ONE (06:38)
[2019-02-28] MEDS ORDERED: FAMOTIDINE 20MG/2ML IV (PEPCID) ONE (06:38)
[2019-02-28] MEDS ORDERED: NEOSTIGMINE 3 MG/3 ML VIAL ONE (06:42)
[2019-02-28] MEDS ORDERED: SEVOFLURANE (ULTANE) 15 ML INHAL SOLN ONE ×3 (06:42→08:27)
[2019-02-28] MEDS ORDERED: BUPIVACAINE 0.25% 30 ML (SENSORCAINE) VIAL ONE (06:46)
[2019-02-28] MEDS ORDERED: THROMBIN 5,000 UNIT (RECOTHROM) VIAL ONE (06:47)
[2019-02-28] MEDS ORDERED: LACTATED RINGERS 1,000 ML IV PRN (06:56)
[2019-02-28] MEDS ORDERED: LACTATED RINGERS 1,000 ML IV ONE (06:56)
[2019-02-28] MEDS ORDERED: ceFAZolin INJECTION 1,000 MG in WATER (STERILE) FOR INJECTION 10 ML IV ONE (07:00)
[2019-02-28] MEDS ORDERED: metroNIDAZOLE 500MG/100ML IVPB 100 ML IV ONE (07:00)
[2019-02-28] MEDS ORDERED: ONDANSETRON 4 MG/2 ML (SDV) Z0FRAN IV ONE (07:00)
[2019-02-28] MEDS ORDERED: FAMOTIDINE 20MG/2ML IV (PEPCID) IV ONE (07:00)
--- NOTE | 2019-02-28 07:02 | Progress Note-Pre Operative ---
Pre-Operative Progress Note H&P Reviewed The H&P was reviewed, patient examined and no changes noted. Date Seen by Provider: Feb 28, 2019 Time Seen by Provider: 07:00 Date H&P Reviewed: Feb 28, 2019 Time H&P Reviewed: 07:00 Pre-Operative Diagnosis: DONNELL BARTH DO Feb 28, 2019 07:02
[2019-02-28] MEDS ORDERED: LACTATED RINGERS 1,000 ML IV SCH (07:26)
[2019-02-28] MEDS ORDERED: ZOLPIDEM 5 MG (AMBIEN) TAB PO PRN (07:30)
[2019-02-28] MEDS ORDERED: CHLORASEPTIC LOZENGE MM PRN (07:30)
[2019-02-28] MEDS ORDERED: ONDANSETRON 4 MG/2 ML (SDV) Z0FRAN IV PRN (07:30)
[2019-02-28] MEDS ORDERED: SIMETHICONE 80 MG (MYLICON) CHEW PO PRN (07:30)
[2019-02-28] MEDS ORDERED: HYDROcodone/APAP 7.5 MG/325 MG (LORTAB, LORCET PLUS) TABLET PO PRN (07:30)
[2019-02-28] MEDS ORDERED: DOCUSATE SODIUM 100 MG (COLACE) CAP PO PRN (07:30)
[2019-02-28] MEDS ORDERED: ANTACID SUSP 30 ML UDC (MYLANTA) PO PRN (07:30)
--- NOTE | 2019-02-28 08:54 | Discharge Inst-Women's Service ---
Discharge Inst-Women's Serv Depart Medication/Instructions New, Converted or Re-Newed RX: RX on Chart Final Diagnosis po sol w rso Consults/Follow Up Additional Follow Up: Yes Orders/Referrals Dr. Cage in 7-10 days and in 8 weeks Activity Activity: Activity as Tolerated Driving Instructions: No Driving for 1 Week NO SMOKING: NO SMOKING Nothing Inside Vagina: No Douching, No Green[place], No Tampons Diet Discharge Diet: No Restrictions Symptoms to Report to : Bleeding Excessive, Pain Increased, Fever Over 101 Degrees F, Vaginal Bleeding Increase, Questions/Concerns For Any Problems or Questions: Contact Your Physician Skin/Wound Care Infection Signs and Symptoms: Increased Redness, Foul Odor of Wound, Increased Drainage, Skin Itchy or Has a Rash, Increased Swelling, Temperature Above 101 F Operative Area Clean and Dry: Keep Incision Clean/Dry Stitches/Lashell/Dermabond: Dermabond, Care of Stitches Bathing Instructions: DONNELL Thompson DO Feb 28, 2019 08:53
[2019-02-28] MEDS ORDERED: KETOROLAC 30 MG/ML VIAL ONE (08:55)
[2019-02-28] MEDS ORDERED: morphine INJ 10 MG/ML 1ML (SYR OR VIAL) ONE (08:55)
[2019-02-28] MEDS ORDERED: IBUP-844 PO (08:56)
[2019-02-28] MEDS ORDERED: DOCU100C37 PO (08:56)
[2019-02-28] MEDS ORDERED: SIME80TA16 PO (08:56)
[2019-02-28] MEDS ORDERED: HYDR-34 PO (08:56)
[2019-02-28] MEDS ORDERED: MEPERIDINE (DEMEROL) INJ 50 MG/ML IVP ONE (09:00)
[2019-02-28] MEDS ORDERED: ONDANSETRON 4 MG/2 ML (SDV) Z0FRAN IVP PRN (09:00)
[2019-02-28] MEDS ORDERED: morphine INJ 10 MG/ML 1ML (SYR OR VIAL) IVP ONE (09:00)
[2019-02-28] MEDS ORDERED: HYDROmorphone 2 MG/ML VIAL (DILAUDID) IV ONE ×2 (09:00→10:45)
[2019-02-28] MEDS ORDERED: PROMETHAZINE INJ 25 MG/ML (PHENERGAN) AMP IVP ONE (09:00)
[2019-02-28] MEDS: KETOROLAC 30 MG/ML VIAL IV PRN ×2 (09:04→15:25)
[2019-02-28] MEDS ORDERED: HYDROmorphone 2 MG/ML VIAL (DILAUDID) ONE (09:05)
--- NOTE | 2019-02-28 10:00 | NUR ---
Pt transferred to room 305 via bed with PACU staff @ side. report received from Rabia Andino RN. care assumed of pt.
--- NOTE | 2019-02-28 10:14 | NUR ---
initial assessment completed, see interventions for further. duncan to DD with clear, yellow urine noted in chamber. lapsites x3, D/I. Band-Aids covering sites. family @ isde. call light within reach.
--- NOTE | 2019-02-28 13:30 | NUR ---
duncan catheter dc'd per Dr's orders. 425cc urine noted in chamber.
--- NOTE | 2019-02-28 13:54 | OPERATIVE REPORT ---
DATE OF SERVICE: 02/28/2019 PREOPERATIVE DIAGNOSIS: A 44-year-old female with dysfunctional uterine bleeding refractory to conservative management treatment. POSTOPERATIVE DIAGNOSES: 1. A 44-year-old female with dysfunctional uterine bleeding refractory to conservative management treatment. 2. Multicystic appearing right ovary. PROCEDURE: Robotic-assisted total laparoscopic hysterectomy with bilateral salpingectomy and right oophorectomy. SURGEON: New Moffett DO ANESTHESIA: General endotracheal. ESTIMATED BLOOD LOSS: Minimal. URINE OUTPUT: 200 mL clear at the end of the procedure. FLUIDS: 1600 mL lactated Ringer's solution. FINDINGS: A grossly normal appearing uterus with tubes, evidence of previous tubal ligation, multicystic appearing right ovary, grossly normal appearing left ovary. SPECIMEN SENT: Uterus, bilateral fallopian tubes and right ovary. INDICATIONS FOR PROCEDURE: This 44-year-old female is a patient who had been consulted to my office and had undergone D and C as well as Mirena IUD placement, OCP management and has even been on Depo-Provera in the past to try to deal with heavy bleeding. She has bled to the point of anemia in the past. Despite all of these conservative management options she has never had a satisfactory control of her bleeding whether be having to stop the treatment options due to side effects or inadequate control of her bleeding. I discussed with the patient more definitive measures due to the fact that we are running out of options in the form of hysterectomy. Risk of this procedure were discussed with the patient in detail including risks of bleeding, infection, damage to any surrounding structures including, but not limited to bowel, bladder, ureter, kidneys, possible need for reoperation, postoperative complications that could occur, recovery timeframe and even . We also discussed trying to preserve ovarian function as she is 44 and is still not menopausal. We discussed ovarian preservation and I told her we would attempt to save at least one ovary pending they looked grossly normal. After everything was discussed with the patient and all of her questions were answered, consent was obtained in the preoperative area and the patient was taken to the operating room. OPERATIVE REPORT IN DETAIL: Once in the operating room, general anesthesia was found to be adequate, placed in dorsal lithotomy position, prepped and draped in normal sterile fashion. Reid catheter was placed using sterile technique. A timeout was performed. Weighted speculum was inserted to the patient's vagina. Right angle retractor was used to visualize the cervix, which was grasped at 12 o'clock position using a long Allis clamp and 0 Vicryl suture was then placed in the anterior lip of the cervix. An Allis clamp was then removed. I then gently sound the uterine cavity depth was found to be 8 cm. I selected an 8 cm Mandie uterine manipulator tip and a 3.5 cm colpotomy ring. The Mandie manipulator tip was advanced into the uterus and the balloon was deployed and the colpotomy ring was advanced around the vaginal fornix after which all the other instruments were removed from the patient's vagina and inadequate manipulation is noted on bimanual examination. I then performed a change of gloves and took my attention to the abdomen where infraumbilically I infiltrated this area using 0.25% Marcaine. I then made an 8 mm incision, I directed Veress needle through the incision until intraperitoneal placement was confirmed using saline drop test. I then proceeded with insufflation using CO2 gas and opening pressure of 5 mmHg was noted. I proceeded to maximum pressure of 15 mmHg, at which point I removed the Veress needle and introduced an 8 mm blunt da Elma camera trocar. Once this was in place, I am able to confirm intraperitoneal placement using the da Elma laparoscope. I then placed two lateral trocars, these were both 8 mm trocars approximately 8 cm lateral to my infraumbilical trocar. These were both placed under direct visualization of laparoscope. Once these are in place and there is no evidence of damage upon entry of any of the intraperitoneal contents or the abdominal wall. I then bringing the da Elma robot and docked in appropriate fashion placing da Elma vessel sealer in the left hand and monopolar leo in the right hand and I took my place at the [employer] operative console. I started on the left side, bipolar cauterizing the uteroovarian ligament and transecting this using the da Elma vessel sealer, I then removed the fallopian tube stump, which was left from previous tubal ligation by going down the mesosalpinx with the da Elma vessel sealer. This was then removed and placed in the vagina and removed through the vagina later in the procedure. I then grasped the round ligament, bipolar cauterized and transected using the da Elma vessel sealer, I then grasped the entire broad ligament, bipolar cauterized and transected using the vessel sealer down to the level of the lower uterine segment, at which point I the anterior leaflet and the posterior leaflet of the broad ligament. The anterior leaflet dissection was taken down to the anterior vaginal fornix posterior leaflet was taken around to the posterior vaginal fornix. During this dissection process I am able to visualize the ureter and stay clear of it during this entire time, I then performed a slightly different dissection on the right side due to the decision to remove the ovary I started at the infundibulopelvic ligament, I bipolar cauterizing and transecting this using the vessel sealer. I then grasped the round ligament, bipolar cauterized and transected using the vessel sealer. I then grasped the entire broad ligament, bipolar cauterized and transected using the vessel sealer down to the level of the lower uterine segment and then in similar fashion, I dissected the anterior leaflet around to the anterior vaginal fornix, the posterior leaflet dissection was taken around the posterior vaginal fornix, which allows me to skeletonize the uterine vessels laterally, which I then bipolar cauterized and transected using the da Elma vessel sealer. Once the uterine vessels I bipolar cauterized and transected bilaterally. I created a colpotomy at 12 o'clock position using monopolar leo visualizing the colpotomy ring of the Mandie uterine manipulator. I then took this around the vaginal fornix amputating the cervix away from the vagina. The cervix, uterus, bilateral fallopian tubes and right ovary were then removed through the vagina. I then proceeded with closing the vaginal cuff using 2-0 Vicryl suture in a [id number] fashion and the lateral vaginal apices colposuspending them to the uterosacral ligament. The middle portion of the vaginal cuff was then reapproximated using 2-0 V-Loc in a running fashion, after which there was no active bleeding noted from any of my dissection planes. I then undocked the da Elma robot and proceeded with remainder of the case laparoscopically. I copiously irrigated the pelvis using normal saline. Once again, there was no active bleeding noted from any of my dissection planes. I placed FloSeal hemostatic agent over my planes of dissection and then had the patient taken out of steep Trendelenburg. The lateral trocars were removed under direct visualization and laparoscope. The infraumbilical trocar was left in place to introduce 10 mL of 0.25% Marcaine for postoperative pain management and to release insufflation. Once this was done, the trocars were removed. The skin was reapproximated using 4-0 Monocryl in interrupted subcuticular stitches. Dermabond was placed over the plate applied over the incisions and Band-Aids were placed over the incisions as well. Reid catheter was left in place. The patient tolerated the procedure well and sent to recovery area in stable condition. Lap and sponge counts were correct at the end of the procedure. Instrument counts were correct as well. Two grams of Ancef, 500 mg of Flagyl were given preoperatively for infection prophylaxis. Job ID: [id number] DocumentID: [id number] Dictated Date: 02/28/2019 10:47:25 Signs Cleaner Date: 02/28/2019 13:53:53 Dictated By: NEW MOFFETT DO
--- NOTE | 2019-02-28 15:00 | NUR ---
assisted up to BR. voided 350cc urine. beth-care offered. v-pad in place.
--- NOTE | 2019-02-28 15:05 | NUR ---
pt sitting in chair @ bedside. requesting D/C to home. IVF's dc'd. converted to HL.
--- NOTE | 2019-02-28 15:08 | NUR ---
was called. update given on pt's status. dismissal order received.
--- NOTE | 2019-02-28 15:30 | NUR ---
dismissal instructions given, verbalizes understanding. reviewed Rx's and follow up appointments. signature page singed, placed on chart.
--- NOTE | 2019-02-28 17:17 | NUR ---
here to see pt.
--- NOTE | 2019-02-28 17:25 | NUR ---
pt ambulated to private vehicle with this RN and family members @ side. pt stable with no sx's of distress noted.
[2019-02-28] MEDS ORDERED: PROMETHAZINE INJ 25 MG/ML (PHENERGAN) AMP IVP PRN (18:45)
[2019-03-01] MEDS ORDERED: IBUPROFEN 600 MG (MOTRIN) TAB PO PRN (00:15)
--- NOTE | 2019-03-01 13:03 | Anesthesia-General Post-Op ---
General Patient Condition Mental Status/LOC: Same as Preop Cardiovascular: Satisfactory Nausea/Vomiting: Absent Respiratory: Satisfactory Pain: Controlled Complications: Absent Post Op Complications Complications None Follow Up Care/Instructions Patient Instructions None needed. Anesthesia/Patient Condition Patient Condition Patient is doing well, no complaints, stable vital signs, no apparent adverse anesthesia problems. No complications reported per nursing. JENNIFER ROMANO CRNA Mar 01, 2019 13:03
== END 2019-02-28 17:25 | disposition home or self-care (01) ==
LOC: SDC 05:48 → WS 10:00 → SDC 17:25
PROVIDERS: ATTEND Obstetrics & Gynecology
DX: N72 Inflammatory disease of cervix uteri (principal); D27.0 Benign neoplasm of right ovary; N83.11 Corpus luteum cyst of right ovary; N83.8 Other noninflammatory disorders of ovary, fallopian tube and broad ligament; D50.9 Iron deficiency anemia, unspecified; N92.0 Excessive and frequent menstruation with regular cycle; D47.3 Essential (hemorrhagic) thrombocythemia; F32.9 Major depressive disorder, single episode, unspecified; K21.9 Gastro-esophageal reflux disease without esophagitis; Z82.49 Family history of ischemic heart disease and other diseases of the circulatory system; Z87.891 Personal history of nicotine dependence
CPT/HCPCS: 36415; 84703; 85025; 86850; 86900; 86901; 87081

== ENCOUNTER 2019-03-13 11:04 | Outpatient (RCR) | payer BC ==
[2018-12-17 10:41] LABS: BASOPHILS % (AUTO) 1 % (0-10); EOSINOPHILS # (AUTO) 0.2 10^3/uL (0.0-0.3); EOSINOPHILS % (AUTO) 2 % (0-10); HEMATOCRIT 41 % (35-52); HEMOGLOBIN 13.5 G/DL (11.5-16.0); LYMPHOCYTES # (AUTO) 1.6 X 10^3 (1.0-4.0); LYMPHOCYTES % (AUTO) 20 % (12-44); MEAN CORPUSCULAR HEMOGLOBIN 31 PG (25-34); MEAN CORPUSCULAR HGB CONC 33 G/DL (32-36); MEAN CORPUSCULAR VOLUME 93 FL (80-99); MEAN PLATELET VOLUME 8.6 FL (7.4-10.4); MONOCYTES # (AUTO) 0.7 X 10^3 (0.0-1.0); MONOCYTES % (AUTO) 8 % (0-12); NEUTROPHILS # (AUTO) 5.8 X 10^3 (1.8-7.8); NEUTROPHILS % (AUTO) 70 % (42-75); PLATELET COUNT 625 10^3/uL (130-400); RED CELL DISTRIBUTION WIDTH 13.8 % (10.0-14.5); WHITE BLOOD COUNT 8.4 10^3/uL (4.3-11.0)
[2018-12-17 10:56] LABS: ALANINE AMINOTRANSFERASE 23 U/L (0-55); ALBUMIN 4.2 GM/DL (3.2-4.5); ALKALINE PHOSPHATASE 54 U/L (40-136); BILIRUBIN,TOTAL 0.3 MG/DL (0.1-1.0); BUN/CREATININE RATIO 13; CALCIUM 9.3 MG/DL (8.5-10.1); CARBON DIOXIDE 24 MMOL/L (21-32); CHLORIDE 107 MMOL/L (98-107); GFR ESTIMATED > 60; GLUCOSE 92 MG/DL (70-105); POTASSIUM 4.2 MMOL/L (3.6-5.0); SODIUM 141 MMOL/L (135-145); TOTAL PROTEIN 6.4 GM/DL (6.4-8.2)
[2019-03-11 14:59] LABS: BASOPHILS # (AUTO) 0.1 10^3/uL (0.0-0.1); BASOPHILS % (AUTO) 1 % (0-10); EOSINOPHILS # (AUTO) 0.3 10^3/uL (0.0-0.3); EOSINOPHILS % (AUTO) 3 % (0-10); HEMATOCRIT 40 % (35-52); LYMPHOCYTES # (AUTO) 2.1 X 10^3 (1.0-4.0); LYMPHOCYTES % (AUTO) 19 % (12-44); MEAN CORPUSCULAR HEMOGLOBIN 30 PG (25-34); MEAN CORPUSCULAR HGB CONC 32 G/DL (32-36); MEAN CORPUSCULAR VOLUME 92 FL (80-99); MEAN PLATELET VOLUME 8.8 FL (7.4-10.4); MONOCYTES # (AUTO) 0.7 X 10^3 (0.0-1.0); MONOCYTES % (AUTO) 6 % (0-12); NEUTROPHILS # (AUTO) 7.9 X 10^3 (1.8-7.8); NEUTROPHILS % (AUTO) 72 % (42-75); PLATELET COUNT 667 10^3/uL (130-400); RED CELL DISTRIBUTION WIDTH 13.1 % (10.0-14.5)
[2019-03-11 15:27] LABS: ALANINE AMINOTRANSFERASE 30 U/L (0-55); ALBUMIN 4.3 GM/DL (3.2-4.5); ALKALINE PHOSPHATASE 78 U/L (40-136); BILIRUBIN,TOTAL 0.3 MG/DL (0.1-1.0); BUN/CREATININE RATIO 11; CALCIUM 9.3 MG/DL (8.5-10.1); CARBON DIOXIDE 23 MMOL/L (21-32); CHLORIDE 106 MMOL/L (98-107); CREATININE SERUM 0.74 MG/DL (0.60-1.30); GFR ESTIMATED > 60; GLUCOSE 73 MG/DL (70-105); POTASSIUM 3.9 MMOL/L (3.6-5.0); SODIUM 139 MMOL/L (135-145); TOTAL PROTEIN 6.9 GM/DL (6.4-8.2)
[~2019-03-13 11:04] MED LIST changes: +DOCU100C37 PO; +HYDR-34 PO; +IBUP-844 PO; +SIME80TA16 PO
== END 2019-03-17 | disposition home or self-care (01) ==
LOC: ONC 11:04
PROVIDERS: ATTEND Internal Medicine Hematology & Oncology
DX: D47.3 Essential (hemorrhagic) thrombocythemia (principal); D50.0 Iron deficiency anemia secondary to blood loss (chronic); N92.0 Excessive and frequent menstruation with regular cycle
CPT/HCPCS: 36415; 80053; 82728; 85025; 99213

== ENCOUNTER → 2019-04-15 | Outpatient (CLI) | payer BC ==
[~2019-04-15] MED LIST changes: +HOLD METFORMIN - RECEIVED CONTRAST 20 ML VIAL IV SCH; +IOHEXOL 350 MG/ML 100 ML (OMNIPAQUE 350) VIAL IV ONE; +NS 100 ML (IVPB) BAG IV ONE
--- NOTE | 2019-04-15 14:07 | Diagnostic Imaging Report ---
PROCEDURE: CT neck soft tissue with contrast. TECHNIQUE: Multiple contiguous axial images were obtained through the neck after the administration of contrast. Auto Exposure Controls were utilized during the CT exam to meet ALARA standards for radiation dose reduction. INDICATION: Right jaw swelling and dysphagia. COMPARISON: No prior studies are available for comparison. FINDINGS: The visualized intracranial structures are unremarkable. Posterior nasopharynx and oropharynx are unremarkable. Parapharyngeal fat planes are preserved. Epiglottis is unremarkable. Larynx is unremarkable. No thyroid mass is detected. Submandibular glands are symmetric bilaterally. Parotid glands appear to be symmetric. No mass or fluid collection is seen. There is no evidence of cervical lymphadenopathy. IMPRESSION: Unremarkable CT soft tissue neck study with contrast. Dictated by: Dictated on workstation # [id number]
== END ==
LOC: RAD 11:59
PROVIDERS: ATTEND Physician Assistant
DX: R13.10 Dysphagia, unspecified (principal); R22.0 Localized swelling, mass and lump, head; Z86.39 Personal history of other endocrine, nutritional and metabolic disease
CPT/HCPCS: 70491

== ENCOUNTER 2019-05-28 09:34 | Outpatient (RCR) | payer BC ==
[2019-04-25 10:51] LABS: BASOPHILS # (AUTO) 0.1 10^3/uL (0.0-0.1); BASOPHILS % (AUTO) 1 % (0-10); EOSINOPHILS # (AUTO) 0.3 10^3/uL (0.0-0.3); EOSINOPHILS % (AUTO) 3 % (0-10); HEMATOCRIT 39 % (35-52); HEMOGLOBIN 13.2 G/DL (11.5-16.0); LYMPHOCYTES # (AUTO) 2.3 X 10^3 (1.0-4.0); LYMPHOCYTES % (AUTO) 28 % (12-44); MEAN CORPUSCULAR HEMOGLOBIN 30 PG (25-34); MEAN CORPUSCULAR HGB CONC 34 G/DL (32-36); MEAN CORPUSCULAR VOLUME 90 FL (80-99); MEAN PLATELET VOLUME 8.8 FL (7.4-10.4); MONOCYTES # (AUTO) 0.6 X 10^3 (0.0-1.0); MONOCYTES % (AUTO) 7 % (0-12); NEUTROPHILS % (AUTO) 61 % (42-75); PLATELET COUNT 615 10^3/uL (130-400); RED CELL DISTRIBUTION WIDTH 13.1 % (10.0-14.5); WHITE BLOOD COUNT 8.3 10^3/uL (4.3-11.0)
[2019-05-09 09:03] LABS: ABSOLUTE RETIC # 77 10e9/L (24-90); BASOPHILS # (AUTO) 0.1 10^3/uL (0.0-0.1); BASOPHILS % (AUTO) 1 % (0-10); EOSINOPHILS # (AUTO) 0.3 10^3/uL (0.0-0.3); EOSINOPHILS % (AUTO) 4 % (0-10); HEMATOCRIT 41 % (35-52); HEMOGLOBIN 13.5 G/DL (11.5-16.0); LYMPHOCYTES # (AUTO) 2.2 X 10^3 (1.0-4.0); LYMPHOCYTES % (AUTO) 26 % (12-44); MEAN CORPUSCULAR HEMOGLOBIN 30 PG (25-34); MEAN CORPUSCULAR HGB CONC 33 G/DL (32-36); MEAN CORPUSCULAR VOLUME 90 FL (80-99); MEAN PLATELET VOLUME 8.7 FL (7.4-10.4); MONOCYTES # (AUTO) 0.7 X 10^3 (0.0-1.0); MONOCYTES % (AUTO) 8 % (0-12); NEUTROPHILS # (AUTO) 5.4 X 10^3 (1.8-7.8); NEUTROPHILS % (AUTO) 63 % (42-75); PLATELET COUNT 610 10^3/uL (130-400); RED CELL DISTRIBUTION WIDTH 13.7 % (10.0-14.5); WHITE BLOOD COUNT 8.7 10^3/uL (4.3-11.0)
[2019-05-09 09:20] LABS: BAND NEUTROPHILS 0 %; BASOPHILS % (MANUAL) 0 %; EOSINOPHILS % (MANUAL) 5 %; LYMPHOCYTES % (MANUAL) 21 %; MONOCYTES % (MANUAL) 10 %; NEUTROPHILS % (MANUAL) 64 %; RBC MORPH NORMAL
[~2019-05-28 09:34] MED LIST changes: -HOLD METFORMIN - RECEIVED CONTRAST 20 ML VIAL IV SCH; -IOHEXOL 350 MG/ML 100 ML (OMNIPAQUE 350) VIAL IV ONE; -NS 100 ML (IVPB) BAG IV ONE
== END 2019-07-24 | disposition home or self-care (01) ==
LOC: ONC 09:34
PROVIDERS: ATTEND Internal Medicine Hematology & Oncology
DX: D47.3 Essential (hemorrhagic) thrombocythemia (principal); D50.0 Iron deficiency anemia secondary to blood loss (chronic); N92.0 Excessive and frequent menstruation with regular cycle
CPT/HCPCS: 36415; 38222; 85007; 85025; 85027; 85045; 88184; 88185; 88305; 88311; 88313; 99213

== ENCOUNTER → 2019-06-04 | Outpatient (CLI) | payer BC ==
--- NOTE | 2019-06-04 12:49 | Diagnostic Imaging Report ---
US ABDOMEN COMPLETE [id number] TECHNIQUE: Multi-projectional sonographic imaging of the abdomen was performed. INDICATION: Essential thrombocytopenia. COMPARISON: Gallbladder ultrasound from 08/23/2018. FINDINGS: The liver is normal in size measuring 17.3 cm in length, and has normal echogenicity. There is no focal hepatic mass. The main portal vein is patent with antegrade flow. The gallbladder is distended without gallstones, wall thickening, or pericholecystic fluid. The common bile duct measures up to 0.5 cm in diameter. No intrahepatic biliary dilation. The visualized portions of the pancreas are normal. Portions of the head and tail are obscured by overlying bowel gas. The kidneys are normal in size. No hydronephrosis, shadowing calculi, or suspicious mass lesion. Spleen measures 11 cm in length. No focal splenic lesion or paracapsular collection. The aorta and IVC are normal in caliber where seen. IMPRESSION: 1. No splenomegaly. 2. Normal sonographic appearance of the liver. Dictated by: Dictated on workstation # [id number]
== END ==
LOC: RAD 08:27
PROVIDERS: ATTEND Internal Medicine Hematology & Oncology
DX: D47.3 Essential (hemorrhagic) thrombocythemia (principal)
CPT/HCPCS: 76700

== ENCOUNTER 2019-08-14 13:58 | Outpatient (RCR) | payer BC ==
[2019-08-14 14:17] LABS: BASOPHILS # (AUTO) 0.1 10^3/uL (0.0-0.1); BASOPHILS % (AUTO) 1 % (0-10); EOSINOPHILS # (AUTO) 0.4 10^3/uL (0.0-0.3); EOSINOPHILS % (AUTO) 4 % (0-10); HEMATOCRIT 39 % (35-52); HEMOGLOBIN 12.8 G/DL (11.5-16.0); LYMPHOCYTES # (AUTO) 2.1 X 10^3 (1.0-4.0); LYMPHOCYTES % (AUTO) 21 % (12-44); MEAN CORPUSCULAR HEMOGLOBIN 30 PG (25-34); MEAN CORPUSCULAR HGB CONC 33 G/DL (32-36); MEAN CORPUSCULAR VOLUME 90 FL (80-99); MEAN PLATELET VOLUME 8.3 FL (7.4-10.4); MONOCYTES # (AUTO) 0.7 X 10^3 (0.0-1.0); MONOCYTES % (AUTO) 6 % (0-12); NEUTROPHILS # (AUTO) 7.1 X 10^3 (1.8-7.8); NEUTROPHILS % (AUTO) 69 % (42-75); PLATELET COUNT 646 10^3/uL (130-400); RED CELL DISTRIBUTION WIDTH 13.8 % (10.0-14.5); WHITE BLOOD COUNT 10.3 10^3/uL (4.3-11.0)
[2019-08-14 14:37] LABS: ALANINE AMINOTRANSFERASE 23 U/L (0-55); ALBUMIN 4.3 GM/DL (3.2-4.5); ALKALINE PHOSPHATASE 68 U/L (40-136); BILIRUBIN,TOTAL 0.2 MG/DL (0.1-1.0); BUN/CREATININE RATIO 13; CARBON DIOXIDE 25 MMOL/L (21-32); CHLORIDE 107 MMOL/L (98-107); CREATININE SERUM 0.77 MG/DL (0.60-1.30); GFR ESTIMATED > 60; GLUCOSE 112 MG/DL (70-105); POTASSIUM 4.4 MMOL/L (3.6-5.0); SODIUM 141 MMOL/L (135-145); TOTAL PROTEIN 6.6 GM/DL (6.4-8.2)
== END 2019-11-12 | disposition home or self-care (01) ==
LOC: ONC 13:58
PROVIDERS: ATTEND Internal Medicine Hematology & Oncology
DX: D47.3 Essential (hemorrhagic) thrombocythemia (principal); D50.0 Iron deficiency anemia secondary to blood loss (chronic); N92.0 Excessive and frequent menstruation with regular cycle
CPT/HCPCS: 80053; 82728; 83615; 85025; 99213

== ENCOUNTER 2019-12-11 14:20 | Outpatient (RCR) | payer BC, OTHER ==
[2019-12-11 14:29] LABS: BASOPHILS # (AUTO) 0.1 10^3/uL (0.0-0.1); BASOPHILS % (AUTO) 1 % (0-10); EOSINOPHILS # (AUTO) 0.7 10^3/uL (0.0-0.3); EOSINOPHILS % (AUTO) 7 % (0-10); HEMATOCRIT 42 % (35-52); HEMOGLOBIN 13.9 G/DL (11.5-16.0); LYMPHOCYTES # (AUTO) 2.4 X 10^3 (1.0-4.0); LYMPHOCYTES % (AUTO) 24 % (12-44); MEAN CORPUSCULAR HEMOGLOBIN 30 PG (25-34); MEAN CORPUSCULAR HGB CONC 33 G/DL (32-36); MEAN CORPUSCULAR VOLUME 90 FL (80-99); MEAN PLATELET VOLUME 8.5 FL (7.4-10.4); MONOCYTES # (AUTO) 0.6 X 10^3 (0.0-1.0); MONOCYTES % (AUTO) 6 % (0-12); NEUTROPHILS # (AUTO) 6.3 X 10^3 (1.8-7.8); NEUTROPHILS % (AUTO) 63 % (42-75); PLATELET COUNT 691 10^3/uL (130-400); RED CELL DISTRIBUTION WIDTH 13.6 % (10.0-14.5); WHITE BLOOD COUNT 10.1 10^3/uL (4.3-11.0)
[2019-12-11 15:02] LABS: ALANINE AMINOTRANSFERASE 19 U/L (0-55); ALBUMIN 4.5 GM/DL (3.2-4.5); ALKALINE PHOSPHATASE 73 U/L (40-136); BILIRUBIN,TOTAL 0.2 MG/DL (0.1-1.0); BUN/CREATININE RATIO 11; CALCIUM 9.7 MG/DL (8.5-10.1); CARBON DIOXIDE 24 MMOL/L (21-32); CHLORIDE 108 MMOL/L (98-107); CREATININE SERUM 0.84 MG/DL (0.60-1.30); GFR ESTIMATED > 60; GLUCOSE 96 MG/DL (70-105); POTASSIUM 4.1 MMOL/L (3.6-5.0); SODIUM 142 MMOL/L (135-145); TOTAL PROTEIN 7.1 GM/DL (6.4-8.2)
== END 2020-03-10 | disposition home or self-care (01) ==
LOC: ONC 14:20
PROVIDERS: ATTEND Internal Medicine Hematology & Oncology
DX: D50.0 Iron deficiency anemia secondary to blood loss (chronic) (principal); N92.0 Excessive and frequent menstruation with regular cycle; D47.3 Essential (hemorrhagic) thrombocythemia; Z79.899 Other long term (current) drug therapy; Z90.710 Acquired absence of both cervix and uterus; Z90.721 Acquired absence of ovaries, unilateral
CPT/HCPCS: 80053; 82728; 83615; 85025; G0463; 99213

== ENCOUNTER 2020-05-21 14:34 | Outpatient (RCR) | payer OTHER ==
[2020-04-07 09:22] LABS: BASOPHILS # (AUTO) 0.1 10^3/uL (0.0-0.1); BASOPHILS % (AUTO) 1 % (0-10); EOSINOPHILS # (AUTO) 0.3 10^3/uL (0.0-0.3); EOSINOPHILS % (AUTO) 3 % (0-10); HEMATOCRIT 43 % (35-52); HEMOGLOBIN 14.3 G/DL (11.5-16.0); LYMPHOCYTES # (AUTO) 2.5 X 10^3 (1.0-4.0); LYMPHOCYTES % (AUTO) 24 % (12-44); MEAN CORPUSCULAR HEMOGLOBIN 30 PG (25-34); MEAN CORPUSCULAR HGB CONC 33 G/DL (32-36); MEAN CORPUSCULAR VOLUME 90 FL (80-99); MONOCYTES # (AUTO) 0.7 X 10^3 (0.0-1.0); MONOCYTES % (AUTO) 7 % (0-12); NEUTROPHILS # (AUTO) 6.8 X 10^3 (1.8-7.8); NEUTROPHILS % (AUTO) 66 % (42-75); PLATELET COUNT 723 10^3/uL (130-400); WHITE BLOOD COUNT 10.3 10^3/uL (4.3-11.0)
[2020-04-07 09:34] LABS: ALANINE AMINOTRANSFERASE 19 U/L (0-55); ALBUMIN 4.5 GM/DL (3.2-4.5); ALKALINE PHOSPHATASE 82 U/L (40-136); BILIRUBIN,TOTAL 0.3 MG/DL (0.1-1.0); BUN/CREATININE RATIO 18; CALCIUM 9.8 MG/DL (8.5-10.1); CARBON DIOXIDE 25 MMOL/L (21-32); CHLORIDE 106 MMOL/L (98-107); CREATININE SERUM 0.82 MG/DL (0.60-1.30); GFR ESTIMATED > 60; GLUCOSE 71 MG/DL (70-105); POTASSIUM 4.2 MMOL/L (3.6-5.0); SODIUM 139 MMOL/L (135-145); TOTAL PROTEIN 7.1 GM/DL (6.4-8.2)
[2020-04-15 12:30] LABS: BASOPHILS # (AUTO) 0.1 10^3/uL (0.0-0.1); BASOPHILS % (AUTO) 1 % (0-10); EOSINOPHILS # (AUTO) 0.4 10^3/uL (0.0-0.3); EOSINOPHILS % (AUTO) 4 % (0-10); HEMATOCRIT 41 % (35-52); HEMOGLOBIN 13.6 G/DL (11.5-16.0); LYMPHOCYTES # (AUTO) 3.4 X 10^3 (1.0-4.0); LYMPHOCYTES % (AUTO) 34 % (12-44); MEAN CORPUSCULAR HEMOGLOBIN 30 PG (25-34); MEAN CORPUSCULAR HGB CONC 33 G/DL (32-36); MEAN CORPUSCULAR VOLUME 91 FL (80-99); MEAN PLATELET VOLUME 8.8 FL (7.4-10.4); MONOCYTES # (AUTO) 0.6 X 10^3 (0.0-1.0); MONOCYTES % (AUTO) 6 % (0-12); NEUTROPHILS # (AUTO) 5.5 X 10^3 (1.8-7.8); NEUTROPHILS % (AUTO) 55 % (42-75); PLATELET COUNT 712 10^3/uL (130-400); WHITE BLOOD COUNT 10.1 10^3/uL (4.3-11.0)
[2020-04-15 12:47] LABS: BUN/CREATININE RATIO 10; CALCIUM 9.3 MG/DL (8.5-10.1); CARBON DIOXIDE 25 MMOL/L (21-32); CHLORIDE 106 MMOL/L (98-107); CREATININE SERUM 0.78 MG/DL (0.60-1.30); GFR ESTIMATED > 60; GLUCOSE 89 MG/DL (70-105); SODIUM 142 MMOL/L (135-145)
[2020-04-23 12:37] LABS: BASOPHILS % (AUTO) 0 % (0-10); EOSINOPHILS # (AUTO) 0.3 10^3/uL (0.0-0.3); EOSINOPHILS % (AUTO) 3 % (0-10); HEMATOCRIT 42 % (35-52); HEMOGLOBIN 13.9 G/DL (11.5-16.0); LYMPHOCYTES # (AUTO) 2.9 X 10^3 (1.0-4.0); LYMPHOCYTES % (AUTO) 29 % (12-44); MEAN CORPUSCULAR HEMOGLOBIN 30 PG (25-34); MEAN CORPUSCULAR HGB CONC 33 G/DL (32-36); MEAN CORPUSCULAR VOLUME 90 FL (80-99); MEAN PLATELET VOLUME 8.6 FL (7.4-10.4); MONOCYTES # (AUTO) 0.6 X 10^3 (0.0-1.0); MONOCYTES % (AUTO) 6 % (0-12); NEUTROPHILS # (AUTO) 5.9 X 10^3 (1.8-7.8); NEUTROPHILS % (AUTO) 61 % (42-75); PLATELET COUNT 563 10^3/uL (130-400); WHITE BLOOD COUNT 9.7 10^3/uL (4.3-11.0)
[2020-04-23 12:51] LABS: BUN/CREATININE RATIO 13; CALCIUM 9.3 MG/DL (8.5-10.1); CARBON DIOXIDE 24 MMOL/L (21-32); CHLORIDE 105 MMOL/L (98-107); CREATININE SERUM 0.77 MG/DL (0.60-1.30); GFR ESTIMATED > 60; GLUCOSE 94 MG/DL (70-105); SODIUM 140 MMOL/L (135-145)
[2020-05-21 14:47] LABS: BASOPHILS # (AUTO) 0.1 10^3/uL (0.0-0.1); BASOPHILS % (AUTO) 1 % (0-10); EOSINOPHILS # (AUTO) 0.2 10^3/uL (0.0-0.3); EOSINOPHILS % (AUTO) 2 % (0-10); HEMATOCRIT 41 % (35-52); HEMOGLOBIN 13.4 g/dL (11.5-16.0); LYMPHOCYTES # (AUTO) 3.1 10^3/uL (1.0-4.0); LYMPHOCYTES % (AUTO) 34 % (12-44); MEAN CORPUSCULAR HEMOGLOBIN 31 pg (25-34); MEAN CORPUSCULAR HGB CONC 33 g/dL (32-36); MEAN CORPUSCULAR VOLUME 95 fL (80-99); MEAN PLATELET VOLUME 8.7 fL (9.0-12.2); MONOCYTES # (AUTO) 0.5 10^3/uL (0.0-1.0); MONOCYTES % (AUTO) 6 % (0-12); NEUTROPHILS # (AUTO) 5.1 10^3/uL (1.8-7.8); NEUTROPHILS % (AUTO) 57 % (42-75); PLATELET COUNT 550 10^3/uL (130-400)
[2020-05-21 15:08] LABS: ALANINE AMINOTRANSFERASE 25 U/L (0-55); ALBUMIN 4.4 GM/DL (3.2-4.5); ALKALINE PHOSPHATASE 74 U/L (40-136); BILIRUBIN,TOTAL 0.4 MG/DL (0.1-1.0); BUN/CREATININE RATIO 15; CALCIUM 9.1 MG/DL (8.5-10.1); CARBON DIOXIDE 25 MMOL/L (21-32); CHLORIDE 102 MMOL/L (98-107); CREATININE SERUM 0.75 MG/DL (0.60-1.30); GFR ESTIMATED > 60; GLUCOSE 88 MG/DL (70-105); POTASSIUM 3.6 MMOL/L (3.6-5.0); SODIUM 139 MMOL/L (135-145)
== END 2020-07-06 | disposition home or self-care (01) ==
LOC: ONC 14:34
PROVIDERS: ATTEND Internal Medicine Hematology & Oncology
DX: D50.0 Iron deficiency anemia secondary to blood loss (chronic) (principal); N92.0 Excessive and frequent menstruation with regular cycle; D47.3 Essential (hemorrhagic) thrombocythemia; Z79.899 Other long term (current) drug therapy; Z90.710 Acquired absence of both cervix and uterus; Z90.721 Acquired absence of ovaries, unilateral; Z86.2 Personal history of diseases of the blood and blood-forming organs and certain disorders involving the immune mechanism
CPT/HCPCS: 80053; 82728; 83615; 85025; G0463; 80048; 99213

== ENCOUNTER 2020-07-29 11:01 | Outpatient (RCR) | payer OTHER ==
[2020-07-29 11:13] LABS: BASOPHILS # (AUTO) 0.1 10^3/uL (0.0-0.1); BASOPHILS % (AUTO) 1 % (0-10); EOSINOPHILS # (AUTO) 0.1 10^3/uL (0.0-0.3); EOSINOPHILS % (AUTO) 2 % (0-10); HEMATOCRIT 41 % (35-52); HEMOGLOBIN 13.3 g/dL (11.5-16.0); LYMPHOCYTES # (AUTO) 2.4 10^3/uL (1.0-4.0); LYMPHOCYTES % (AUTO) 30 % (12-44); MEAN CORPUSCULAR HEMOGLOBIN 33 pg (25-34); MEAN CORPUSCULAR HGB CONC 32 g/dL (32-36); MEAN CORPUSCULAR VOLUME 103 fL (80-99); MEAN PLATELET VOLUME 8.8 fL (9.0-12.2); MONOCYTES # (AUTO) 0.4 10^3/uL (0.0-1.0); MONOCYTES % (AUTO) 6 % (0-12); NEUTROPHILS % (AUTO) 62 % (42-75); PLATELET COUNT 521 10^3/uL (130-400); WHITE BLOOD COUNT 8.1 10^3/uL (4.3-11.0)
[2020-07-29 11:23] LABS: ALBUMIN 4.4 GM/DL (3.2-4.5); CHLORIDE 105 MMOL/L (98-107); POTASSIUM 3.9 MMOL/L (3.6-5.0); SODIUM 139 MMOL/L (135-145)
[2020-07-29 11:24] LABS: CALCIUM 9.1 MG/DL (8.5-10.1)
[2020-07-29 11:25] LABS: GLUCOSE 96 MG/DL (70-105)
[2020-07-29 11:26] LABS: TOTAL PROTEIN 6.8 GM/DL (6.4-8.2)
[2020-07-29 11:27] LABS: BILIRUBIN,TOTAL 0.3 MG/DL (0.1-1.0); CARBON DIOXIDE 24 MMOL/L (21-32)
[2020-07-29 11:29] LABS: ALKALINE PHOSPHATASE 75 U/L (40-136); CREATININE SERUM 0.76 MG/DL (0.60-1.30); GFR ESTIMATED > 60
[2020-07-29 11:30] LABS: BUN/CREATININE RATIO 16
[2020-07-29 11:32] LABS: ALANINE AMINOTRANSFERASE 24 U/L (0-55)
== END 2020-09-23 11:06 | disposition home or self-care (01) ==
LOC: ONC 11:01
PROVIDERS: ATTEND Internal Medicine Hematology & Oncology
DX: D50.9 Iron deficiency anemia, unspecified (principal); N92.0 Excessive and frequent menstruation with regular cycle; D47.3 Essential (hemorrhagic) thrombocythemia; Z79.899 Other long term (current) drug therapy; Z90.710 Acquired absence of both cervix and uterus; Z90.721 Acquired absence of ovaries, unilateral; Z86.2 Personal history of diseases of the blood and blood-forming organs and certain disorders involving the immune mechanism; Z86.39 Personal history of other endocrine, nutritional and metabolic disease
CPT/HCPCS: 80053; 82728; 83615; 85025; G0463; 99213

== ENCOUNTER 2020-11-11 15:00 | Outpatient (RCR) | payer OTHER | END 2021-02-09 | disposition home or self-care (01) | LOC: CARD 15:00 | PROVIDERS: ATTEND Internal Medicine Cardiovascular Disease | DX: I34.0 Nonrheumatic mitral (valve) insufficiency (principal) | CPT/HCPCS: 93306 ==

== ENCOUNTER 2020-11-19 08:58 | Outpatient (RCR) | payer OTHER ==
[2020-09-30 11:10] LABS: BASOPHILS # (AUTO) 0.1 10^3/uL (0.0-0.1); BASOPHILS % (AUTO) 1 % (0-10); EOSINOPHILS # (AUTO) 0.1 10^3/uL (0.0-0.3); EOSINOPHILS % (AUTO) 2 % (0-10); HEMATOCRIT 37 % (35-52); HEMOGLOBIN 12.2 g/dL (11.5-16.0); LYMPHOCYTES # (AUTO) 2.9 10^3/uL (1.0-4.0); LYMPHOCYTES % (AUTO) 38 % (12-44); MEAN CORPUSCULAR HEMOGLOBIN 34 pg (25-34); MEAN CORPUSCULAR HGB CONC 33 g/dL (32-36); MEAN CORPUSCULAR VOLUME 105 fL (80-99); MEAN PLATELET VOLUME 8.9 fL (9.0-12.2); MONOCYTES # (AUTO) 0.6 10^3/uL (0.0-1.0); MONOCYTES % (AUTO) 7 % (0-12); NEUTROPHILS # (AUTO) 3.9 10^3/uL (1.8-7.8); NEUTROPHILS % (AUTO) 52 % (42-75); PLATELET COUNT 399 10^3/uL (130-400); WHITE BLOOD COUNT 7.6 10^3/uL (4.3-11.0)
[2020-09-30 11:33] LABS: ALANINE AMINOTRANSFERASE 27 U/L (0-55); ALBUMIN 4.1 GM/DL (3.2-4.5); ALKALINE PHOSPHATASE 66 U/L (40-136); BILIRUBIN,TOTAL 0.3 MG/DL (0.1-1.0); BUN/CREATININE RATIO 14; CARBON DIOXIDE 23 MMOL/L (21-32); CHLORIDE 107 MMOL/L (98-107); CREATININE SERUM 0.84 MG/DL (0.60-1.30); GFR ESTIMATED > 60; GLUCOSE 109 MG/DL (70-105); POTASSIUM 4.2 MMOL/L (3.6-5.0); SODIUM 140 MMOL/L (135-145); TOTAL PROTEIN 6.5 GM/DL (6.4-8.2)
[2020-11-19 09:12] LABS: BASOPHILS # (AUTO) 0.1 10^3/uL (0.0-0.1); BASOPHILS % (AUTO) 1 % (0-10); EOSINOPHILS # (AUTO) 0.3 10^3/uL (0.0-0.3); EOSINOPHILS % (AUTO) 4 % (0-10); HEMATOCRIT 40 % (35-52); HEMOGLOBIN 12.8 g/dL (11.5-16.0); LYMPHOCYTES # (AUTO) 2.2 10^3/uL (1.0-4.0); LYMPHOCYTES % (AUTO) 28 % (12-44); MEAN CORPUSCULAR HEMOGLOBIN 34 pg (25-34); MEAN CORPUSCULAR HGB CONC 32 g/dL (32-36); MEAN CORPUSCULAR VOLUME 104 fL (80-99); MEAN PLATELET VOLUME 8.4 fL (9.0-12.2); MONOCYTES # (AUTO) 0.6 10^3/uL (0.0-1.0); MONOCYTES % (AUTO) 8 % (0-12); NEUTROPHILS # (AUTO) 4.5 10^3/uL (1.8-7.8); NEUTROPHILS % (AUTO) 59 % (42-75); PLATELET COUNT 390 10^3/uL (130-400); WHITE BLOOD COUNT 7.7 10^3/uL (4.3-11.0)
== END 2020-12-29 | disposition home or self-care (01) ==
LOC: ONC 08:58
PROVIDERS: ATTEND Internal Medicine Hematology & Oncology
DX: D47.3 Essential (hemorrhagic) thrombocythemia (principal); D50.9 Iron deficiency anemia, unspecified; N92.0 Excessive and frequent menstruation with regular cycle; Z79.899 Other long term (current) drug therapy; Z90.710 Acquired absence of both cervix and uterus; Z90.721 Acquired absence of ovaries, unilateral; Z86.2 Personal history of diseases of the blood and blood-forming organs and certain disorders involving the immune mechanism; Z86.39 Personal history of other endocrine, nutritional and metabolic disease
CPT/HCPCS: 80053; 82728; 83615; 85025; G0463; 99213

== ENCOUNTER 2021-05-11 12:59 | Outpatient (RCR) | payer OTHER ==
[2021-02-18 10:33] LABS: BASOPHILS % (AUTO) 1 % (0-10); EOSINOPHILS # (AUTO) 0.1 10^3/uL (0.0-0.3); EOSINOPHILS % (AUTO) 2 % (0-10); HEMATOCRIT 38 % (35-52); LYMPHOCYTES # (AUTO) 2.4 10^3/uL (1.0-4.0); LYMPHOCYTES % (AUTO) 32 % (12-44); MEAN CORPUSCULAR HEMOGLOBIN 35 pg (25-34); MEAN CORPUSCULAR HGB CONC 34 g/dL (32-36); MEAN CORPUSCULAR VOLUME 103 fL (80-99); MEAN PLATELET VOLUME 8.7 fL (9.0-12.2); MONOCYTES # (AUTO) 0.6 10^3/uL (0.0-1.0); MONOCYTES % (AUTO) 8 % (0-12); NEUTROPHILS # (AUTO) 4.4 10^3/uL (1.8-7.8); NEUTROPHILS % (AUTO) 58 % (42-75); PLATELET COUNT 454 10^3/uL (130-400); WHITE BLOOD COUNT 7.5 10^3/uL (4.3-11.0)
[2021-02-18 11:01] LABS: ALANINE AMINOTRANSFERASE 23 U/L (0-55); ALBUMIN 4.2 GM/DL (3.2-4.5); ALKALINE PHOSPHATASE 63 U/L (40-136); BILIRUBIN,TOTAL 0.4 MG/DL (0.1-1.0); BUN/CREATININE RATIO 12; CALCIUM 9.1 MG/DL (8.5-10.1); CARBON DIOXIDE 25 MMOL/L (21-32); CHLORIDE 105 MMOL/L (98-107); CREATININE SERUM 0.83 MG/DL (0.60-1.30); GFR ESTIMATED > 60; GLUCOSE 87 MG/DL (70-105); POTASSIUM 4.1 MMOL/L (3.6-5.0); SODIUM 138 MMOL/L (135-145); TOTAL PROTEIN 6.8 GM/DL (6.4-8.2)
[2021-03-25 14:30] LABS: BASOPHILS # (AUTO) 0.1 10^3/uL (0.0-0.1); BASOPHILS % (AUTO) 1 % (0-10); EOSINOPHILS # (AUTO) 0.5 10^3/uL (0.0-0.3); EOSINOPHILS % (AUTO) 4 % (0-10); HEMATOCRIT 40 % (35-52); HEMOGLOBIN 13.4 g/dL (11.5-16.0); LYMPHOCYTES # (AUTO) 2.7 10^3/uL (1.0-4.0); LYMPHOCYTES % (AUTO) 25 % (12-44); MEAN CORPUSCULAR HEMOGLOBIN 34 pg (25-34); MEAN CORPUSCULAR HGB CONC 34 g/dL (32-36); MEAN CORPUSCULAR VOLUME 100 fL (80-99); MEAN PLATELET VOLUME 8.7 fL (9.0-12.2); MONOCYTES # (AUTO) 0.7 10^3/uL (0.0-1.0); MONOCYTES % (AUTO) 6 % (0-12); NEUTROPHILS # (AUTO) 6.6 10^3/uL (1.8-7.8); NEUTROPHILS % (AUTO) 63 % (42-75); PLATELET COUNT 574 10^3/uL (130-400); WHITE BLOOD COUNT 10.5 10^3/uL (4.3-11.0)
[2021-03-25 14:50] LABS: ALBUMIN 4.2 GM/DL (3.2-4.5); BILIRUBIN,TOTAL 0.4 MG/DL (0.1-1.0); CALCIUM 9.5 MG/DL (8.5-10.1); CREATININE SERUM 0.82 MG/DL (0.60-1.30); POTASSIUM 3.9 MMOL/L (3.6-5.0); TOTAL PROTEIN 6.9 GM/DL (6.4-8.2)
[2021-05-11 13:18] LABS: BASOPHILS # (AUTO) 0.1 10^3/uL (0.0-0.1); BASOPHILS % (AUTO) 1 % (0-10); EOSINOPHILS # (AUTO) 0.4 10^3/uL (0.0-0.3); EOSINOPHILS % (AUTO) 4 % (0-10); HEMATOCRIT 40 % (35-52); HEMOGLOBIN 13.1 g/dL (11.5-16.0); LYMPHOCYTES # (AUTO) 2.9 10^3/uL (1.0-4.0); LYMPHOCYTES % (AUTO) 29 % (12-44); MEAN CORPUSCULAR HEMOGLOBIN 31 pg (25-34); MEAN CORPUSCULAR HGB CONC 33 g/dL (32-36); MEAN CORPUSCULAR VOLUME 96 fL (80-99); MEAN PLATELET VOLUME 8.7 fL (9.0-12.2); MONOCYTES # (AUTO) 0.7 10^3/uL (0.0-1.0); MONOCYTES % (AUTO) 7 % (0-12); NEUTROPHILS % (AUTO) 59 % (42-75); PLATELET COUNT 567 10^3/uL (130-400); WHITE BLOOD COUNT 10.1 10^3/uL (4.3-11.0)
[2021-05-11 13:47] LABS: ALBUMIN 4.2 GM/DL (3.2-4.5); BILIRUBIN,TOTAL 0.5 MG/DL (0.1-1.0); CALCIUM 9.6 MG/DL (8.5-10.1); CREATININE SERUM 0.82 MG/DL (0.60-1.30); POTASSIUM 3.9 MMOL/L (3.6-5.0); TOTAL PROTEIN 6.9 GM/DL (6.4-8.2)
== END 2021-05-19 | disposition home or self-care (01) ==
LOC: ONC 12:59
PROVIDERS: ATTEND Internal Medicine Hematology & Oncology
DX: D47.3 Essential (hemorrhagic) thrombocythemia (principal); D50.9 Iron deficiency anemia, unspecified; Z90.710 Acquired absence of both cervix and uterus; Z90.722 Acquired absence of ovaries, bilateral; Z86.39 Personal history of other endocrine, nutritional and metabolic disease
CPT/HCPCS: 80053; 85025; G0463; 82607; 82746; 99213

== ENCOUNTER 2021-08-23 14:29 | Outpatient (RCR) | payer OTHER ==
[2021-08-23 14:52] LABS: BASOPHILS # (AUTO) 0.1 10^3/uL (0.0-0.1); BASOPHILS % (AUTO) 1 % (0-10); EOSINOPHILS # (AUTO) 0.3 10^3/uL (0.0-0.3); EOSINOPHILS % (AUTO) 4 % (0-10); HEMATOCRIT 40 % (35-52); HEMOGLOBIN 13.2 g/dL (11.5-16.0); LYMPHOCYTES # (AUTO) 2.2 X 10^3 (1.0-4.0); LYMPHOCYTES % (AUTO) 29 % (12-44); MEAN CORPUSCULAR HEMOGLOBIN 30 pg (25-34); MEAN CORPUSCULAR HGB CONC 33 g/dL (32-36); MEAN CORPUSCULAR VOLUME 92 fL (80-99); MEAN PLATELET VOLUME 8.8 fL (9.0-12.2); MONOCYTES # (AUTO) 0.5 X 10^3 (0.0-1.0); MONOCYTES % (AUTO) 6 % (0-12); NEUTROPHILS # (AUTO) 4.6 X 10^3 (1.8-7.8); NEUTROPHILS % (AUTO) 60 % (42-75); PLATELET COUNT 596 10^3/uL (130-400); WHITE BLOOD COUNT 7.6 10^3/uL (4.3-11.0)
[2021-08-23 15:11] LABS: ALBUMIN 4.2 GM/DL (3.2-4.5); BILIRUBIN,TOTAL 0.3 MG/DL (0.1-1.0); CALCIUM 9.5 MG/DL (8.5-10.1); CREATININE SERUM 0.84 MG/DL (0.60-1.30); TOTAL PROTEIN 6.5 GM/DL (6.4-8.2)
== END 2021-09-06 | disposition home or self-care (01) ==
LOC: ONC 14:29
PROVIDERS: ATTEND Internal Medicine
DX: D50.9 Iron deficiency anemia, unspecified (principal); D47.3 Essential (hemorrhagic) thrombocythemia; Z90.710 Acquired absence of both cervix and uterus; Z90.722 Acquired absence of ovaries, bilateral; Z86.39 Personal history of other endocrine, nutritional and metabolic disease
CPT/HCPCS: 80053; 85025; G0463; 99213

== ENCOUNTER 2021-09-13 11:00 | Outpatient (RCR) | payer OTHER ==
[2021-09-13 11:08] LABS: BASOPHILS # (AUTO) 0.1 10^3/uL (0.0-0.1); BASOPHILS % (AUTO) 1 % (0-10); EOSINOPHILS # (AUTO) 0.2 10^3/uL (0.0-0.3); EOSINOPHILS % (AUTO) 3 % (0-10); HEMATOCRIT 40 % (35-52); HEMOGLOBIN 13.2 g/dL (11.5-16.0); LYMPHOCYTES # (AUTO) 2.6 10^3/uL (1.0-4.0); LYMPHOCYTES % (AUTO) 32 % (12-44); MEAN CORPUSCULAR HEMOGLOBIN 31 pg (25-34); MEAN CORPUSCULAR HGB CONC 33 g/dL (32-36); MEAN CORPUSCULAR VOLUME 93 fL (80-99); MEAN PLATELET VOLUME 8.8 fL (9.0-12.2); MONOCYTES # (AUTO) 0.6 10^3/uL (0.0-1.0); MONOCYTES % (AUTO) 7 % (0-12); NEUTROPHILS # (AUTO) 4.6 10^3/uL (1.8-7.8); NEUTROPHILS % (AUTO) 57 % (42-75); PLATELET COUNT 440 10^3/uL (130-400); WHITE BLOOD COUNT 8.1 10^3/uL (4.3-11.0)
== END 2021-10-04 | disposition home or self-care (01) ==
LOC: ONC 11:00
PROVIDERS: ATTEND Internal Medicine
DX: D50.9 Iron deficiency anemia, unspecified (principal); D47.3 Essential (hemorrhagic) thrombocythemia; Z90.710 Acquired absence of both cervix and uterus; Z90.722 Acquired absence of ovaries, bilateral; Z86.39 Personal history of other endocrine, nutritional and metabolic disease
CPT/HCPCS: 85025; G0463; 36415; 99213

== ENCOUNTER 2021-12-13 09:25 | Outpatient (RCR) | payer OTHER ==
[2021-12-13 09:36] LABS: BASOPHILS % (AUTO) 1 % (0-10); EOSINOPHILS # (AUTO) 0.1 10^3/uL (0.0-0.3); EOSINOPHILS % (AUTO) 3 % (0-10); HEMATOCRIT 37 % (35-52); HEMOGLOBIN 11.8 g/dL (11.5-16.0); LYMPHOCYTES # (AUTO) 1.3 10^3/uL (1.0-4.0); LYMPHOCYTES % (AUTO) 31 % (12-44); MEAN CORPUSCULAR HEMOGLOBIN 29 pg (25-34); MEAN CORPUSCULAR HGB CONC 32 g/dL (32-36); MEAN CORPUSCULAR VOLUME 92 fL (80-99); MEAN PLATELET VOLUME 8.8 fL (9.0-12.2); MONOCYTES # (AUTO) 0.7 10^3/uL (0.0-1.0); MONOCYTES % (AUTO) 16 % (0-12); NEUTROPHILS # (AUTO) 2.1 10^3/uL (1.8-7.8); NEUTROPHILS % (AUTO) 49 % (42-75); PLATELET COUNT 391 10^3/uL (130-400); WHITE BLOOD COUNT 4.3 10^3/uL (4.3-11.0)
== END 2022-01-04 | disposition home or self-care (01) ==
LOC: ONC 09:25
PROVIDERS: ATTEND Internal Medicine
DX: D47.3 Essential (hemorrhagic) thrombocythemia (principal)
CPT/HCPCS: 36415; 85025; 99213

== ENCOUNTER 2022-03-14 09:39 | Outpatient (RCR) | payer OTHER ==
[2022-03-14 10:05] LABS: BASOPHILS # (AUTO) 0.1 10^3/uL (0.0-0.1); BASOPHILS % (AUTO) 1 % (0-10); EOSINOPHILS # (AUTO) 0.2 10^3/uL (0.0-0.3); EOSINOPHILS % (AUTO) 3 % (0-10); HEMATOCRIT 38 % (35-52); HEMOGLOBIN 12.5 g/dL (11.5-16.0); LYMPHOCYTES # (AUTO) 2.9 10^3/uL (1.0-4.0); LYMPHOCYTES % (AUTO) 40 % (12-44); MEAN CORPUSCULAR HEMOGLOBIN 29 pg (25-34); MEAN CORPUSCULAR HGB CONC 33 g/dL (32-36); MEAN CORPUSCULAR VOLUME 90 fL (80-99); MONOCYTES # (AUTO) 0.4 10^3/uL (0.0-1.0); MONOCYTES % (AUTO) 6 % (0-12); NEUTROPHILS # (AUTO) 3.7 10^3/uL (1.8-7.8); NEUTROPHILS % (AUTO) 51 % (42-75); PLATELET COUNT 534 10^3/uL (130-400); WHITE BLOOD COUNT 7.3 10^3/uL (4.3-11.0)
== END 2022-04-06 | disposition home or self-care (01) ==
LOC: ONC 09:39
PROVIDERS: ATTEND Internal Medicine
DX: D47.3 Essential (hemorrhagic) thrombocythemia (principal); D50.9 Iron deficiency anemia, unspecified; Z86.39 Personal history of other endocrine, nutritional and metabolic disease
CPT/HCPCS: 36415; 85025; 99213

== ENCOUNTER 2022-06-20 10:22 | Outpatient (RCR) | payer OTHER ==
[2022-06-20 10:40] LABS: BASOPHILS # (AUTO) 0.1 10^3/uL (0.0-0.1); BASOPHILS % (AUTO) 1 % (0-10); EOSINOPHILS # (AUTO) 1.1 10^3/uL (0.0-0.3); EOSINOPHILS % (AUTO) 13 % (0-10); HEMATOCRIT 39 % (35-52); HEMOGLOBIN 12.6 g/dL (11.5-16.0); LYMPHOCYTES # (AUTO) 2.8 10^3/uL (1.0-4.0); LYMPHOCYTES % (AUTO) 33 % (12-44); MEAN CORPUSCULAR HEMOGLOBIN 29 pg (25-34); MEAN CORPUSCULAR HGB CONC 32 g/dL (32-36); MEAN CORPUSCULAR VOLUME 91 fL (80-99); MEAN PLATELET VOLUME 8.7 fL (9.0-12.2); MONOCYTES # (AUTO) 0.5 10^3/uL (0.0-1.0); MONOCYTES % (AUTO) 6 % (0-12); NEUTROPHILS % (AUTO) 47 % (42-75); PLATELET COUNT 502 10^3/uL (130-400); WHITE BLOOD COUNT 8.5 10^3/uL (4.3-11.0)
== END 2022-07-06 | disposition home or self-care (01) ==
LOC: ONC 10:22
PROVIDERS: ATTEND Internal Medicine
DX: D47.3 Essential (hemorrhagic) thrombocythemia (principal); D50.9 Iron deficiency anemia, unspecified; Z86.39 Personal history of other endocrine, nutritional and metabolic disease
CPT/HCPCS: 36415; 85025; 99213

== ENCOUNTER 2022-09-28 10:41 | Outpatient (RCR) | payer OTHER ==
[2022-09-28 11:03] LABS: BASOPHILS # (AUTO) 0.1 10^3/uL (0.0-0.1); BASOPHILS % (AUTO) 1 % (0-10); EOSINOPHILS # (AUTO) 0.3 10^3/uL (0.0-0.3); EOSINOPHILS % (AUTO) 3 % (0-10); HEMATOCRIT 38 % (35-52); HEMOGLOBIN 12.7 g/dL (11.5-16.0); LYMPHOCYTES # (AUTO) 3.3 10^3/uL (1.0-4.0); LYMPHOCYTES % (AUTO) 36 % (12-44); MEAN CORPUSCULAR HEMOGLOBIN 29 pg (25-34); MEAN CORPUSCULAR HGB CONC 33 g/dL (32-36); MEAN CORPUSCULAR VOLUME 89 fL (80-99); MONOCYTES # (AUTO) 0.7 10^3/uL (0.0-1.0); MONOCYTES % (AUTO) 7 % (0-12); NEUTROPHILS % (AUTO) 53 % (42-75); PLATELET COUNT 580 10^3/uL (130-400); WHITE BLOOD COUNT 9.4 10^3/uL (4.3-11.0)
== END 2022-10-04 | disposition home or self-care (01) ==
LOC: ONC 10:41
PROVIDERS: ATTEND Internal Medicine Hematology & Oncology
DX: D47.3 Essential (hemorrhagic) thrombocythemia (principal); D50.9 Iron deficiency anemia, unspecified
CPT/HCPCS: 36415; 85025

== ENCOUNTER 2022-12-21 09:28 | Outpatient (RCR) | payer OTHER ==
[2022-12-21 10:01] LABS: BASOPHILS # (AUTO) 0.1 10^3/uL (0.0-0.1); BASOPHILS % (AUTO) 1 % (0-10); EOSINOPHILS # (AUTO) 0.2 10^3/uL (0.0-0.3); EOSINOPHILS % (AUTO) 3 % (0-10); HEMATOCRIT 43 % (35-52); HEMOGLOBIN 13.6 g/dL (11.5-16.0); LYMPHOCYTES # (AUTO) 3.1 10^3/uL (1.0-4.0); LYMPHOCYTES % (AUTO) 36 % (12-44); MEAN CORPUSCULAR HEMOGLOBIN 29 pg (25-34); MEAN CORPUSCULAR HGB CONC 32 g/dL (32-36); MEAN CORPUSCULAR VOLUME 91 fL (80-99); MEAN PLATELET VOLUME 9.3 fL (9.0-12.2); MONOCYTES # (AUTO) 0.5 10^3/uL (0.0-1.0); MONOCYTES % (AUTO) 6 % (0-12); NEUTROPHILS # (AUTO) 4.5 10^3/uL (1.8-7.8); NEUTROPHILS % (AUTO) 54 % (42-75); PLATELET COUNT 633 10^3/uL (130-400); WHITE BLOOD COUNT 8.4 10^3/uL (4.3-11.0)
== END 2023-01-04 | disposition home or self-care (01) ==
LOC: ONC 09:28
PROVIDERS: ATTEND Internal Medicine Hematology & Oncology
DX: D47.3 Essential (hemorrhagic) thrombocythemia (principal); D50.9 Iron deficiency anemia, unspecified
CPT/HCPCS: 36415; 85025

== ENCOUNTER 2023-04-05 13:21 | Outpatient (RCR) | payer OTHER ==
[2023-04-05 13:44] LABS: BASOPHILS # (AUTO) 0.1 10^3/uL (0.0-0.1); BASOPHILS % (AUTO) 1 % (0-10); EOSINOPHILS # (AUTO) 0.2 10^3/uL (0.0-0.3); EOSINOPHILS % (AUTO) 2 % (0-10); HEMATOCRIT 38 % (35-52); HEMOGLOBIN 12.2 g/dL (11.5-16.0); LYMPHOCYTES # (AUTO) 2.6 10^3/uL (1.0-4.0); LYMPHOCYTES % (AUTO) 28 % (12-44); MEAN CORPUSCULAR HEMOGLOBIN 30 pg (25-34); MEAN CORPUSCULAR HGB CONC 33 g/dL (32-36); MEAN CORPUSCULAR VOLUME 92 fL (80-99); MEAN PLATELET VOLUME 8.9 fL (9.0-12.2); MONOCYTES # (AUTO) 0.6 10^3/uL (0.0-1.0); MONOCYTES % (AUTO) 6 % (0-12); NEUTROPHILS # (AUTO) 5.9 10^3/uL (1.8-7.8); NEUTROPHILS % (AUTO) 63 % (42-75); PLATELET COUNT 584 10^3/uL (130-400); WHITE BLOOD COUNT 9.3 10^3/uL (4.3-11.0)
== END 2023-04-06 | disposition home or self-care (01) ==
LOC: ONC 13:21
PROVIDERS: ATTEND Internal Medicine Hematology & Oncology
DX: D47.3 Essential (hemorrhagic) thrombocythemia (principal)
CPT/HCPCS: 36415; 85025; 99214

== ENCOUNTER → 2023-06-19 | Outpatient (CLI) | payer OTHER ==
--- NOTE | 2023-06-19 16:54 | Diagnostic Imaging Report ---
EXAMINATION: 3D bilateral screening mammogram with CAD. COMPARISON: This study was compared to the prior exam of 01/02/2020. PERSONAL HISTORY: At this time, there are no current complaints. FINDINGS: The previous study did show that there were bilateral breast implants in place. Reportedly, the implants were removed in 2020. There is no remnant of either implant evident on this study. The breasts are heterogeneously dense which may obscure small masses. A few benign-appearing macrocalcifications have developed in the left breast. There is no primary or secondary sign of malignancy noted. IMPRESSION: 1. There is no evidence of malignancy. 2. The bilateral breast implants seen on the prior study have been removed without apparent complication.. 3. The patient should have her annual bilateral screening mammogram on schedule in June 2024. ACR BI-RADS Category 1: Negative. Result letter will be mailed to the patient. Note: At least 10% of breast cancer is not imaged by mammography. Dictated by: Dictated on workstation # [id number]
== END ==
LOC: RAD 09:37
PROVIDERS: ATTEND Internal Medicine
DX: Z12.31 Encounter for screening mammogram for malignant neoplasm of breast (principal); D47.3 Essential (hemorrhagic) thrombocythemia; G43.909 Migraine, unspecified, not intractable, without status migrainosus; Z98.82 Breast implant status
CPT/HCPCS: 77063; 77067